=== PATIENT | female | born 1960 | race Caucasian/White ===

== ENCOUNTER 2018-08-08 11:49 | Outpatient (REF) | payer BC, SELFPAY ==
[2018-08-08 22:23] LABS: ALT 30 U/L (12-78); AST 18 U/L (15-37); Albumin 4.1 g/dL (3.4-5.0); Alkaline Phosphatase 77 U/L (46-116); Anion Gap 10.2 mmol/L (3-11); BUN 22 mg/dL (7-18); Bilirubin, Total 0.6 mg/dL (0.2-1.0); CO2 27.8 mmol/L (21.0-32.0); CREATININE 0.94 mg/dL (0.55-1.02); Calcium 9.7 mg/dL (8.5-10.1); Chloride 101 mmol/L (98-107); Cholesterol 302 mg/dL (50-200); Glucose 86 mg/dL (70-100); HDL Cholesterol 116 mg/dL (40-60); LDL CHOLESTEROL 167 mg/dL (<100); Potassium 4.2 mmol/L (3.5-5.1); Sodium 139 mmol/L (136-145); Total Protein 7.9 g/dL (6.4-8.2); Triglyceride 66 mg/dL (30-150)
== END 2018-08-08 12:09 ==
LOC: NCHCN 11:49
PROVIDERS: PCP Family Medicine; Visit Provider Family Medicine
DX: E78.5 Hyperlipidemia, unspecified (principal)
CPT/HCPCS: 80053; 80061; 83721

== ENCOUNTER 2018-09-07 10:14 | Outpatient (REF) | payer BC, SELFPAY ==
--- NOTE | 2018-09-07 09:40 | PAPFT_PTH ---
PATIENT: Shaina Lewis LOC: [facility] U#:[id number] AGE/SX: 57/F ROOM: RE09/07/[address]: Hilda Appiah : 1960 BED: DIS: 09/07/2018 SPEC #: [id number] RECD: 09/07/18 12:57 STATUS: CHERYL REMadeline #: [id number] GARETH: 09/07/18 09:[address]: Hilda Appiah DEPT: [facility] [place] Cytology RECD BY: Jennifer Gross ENTERED: 09/07/18 12:58 SP TYPE: PAPFT OTHR DR: Sophia Obando Tissues: 1 - CX/ENDOCX FOR PAP SMEARS Procedures: PAP THIN PREP/UVM Screening HPV DNA PROBE Comments: [id number]
== END 2018-09-07 10:34 ==
LOC: LBN 10:14
PROVIDERS: PCP Family Medicine; Visit Provider Obstetrics & Gynecology Gynecology
DX: Z12.4 Encounter for screening for malignant neoplasm of cervix (principal); Z11.51 Encounter for screening for human papillomavirus (HPV)
CPT/HCPCS: 88142; 87624

== ENCOUNTER 2018-10-02 01:10 | Outpatient (CLI) | payer BC, SELFPAY ==
--- NOTE | 2018-10-02 08:05 | DI.MAMMO_ITS ---
SYMPTOM/DIAGNOSIS: SCREENING, Z12.31 MAMMOGRAMS: Mammograms were interpreted according to the usual protocol including computer analysis with CAD system, tomosynthesis and C view imaging. Comparison is made with exams from [id number]. The breasts are composed of scattered fibroglandular densities. No suspicious masses or suspicious microcalcifications are seen. There has been no significant change. Breast density, category B. IMPRESSION: Category 1, negative mammogram. Yearly screening mammography is recommended. [facility] ASSESSMENT OF FINDINGS: Negative. Category 1. Patient will receive a letter notifying them of these results. BI-RADS category B. There are scattered areas of fibroglandular density.
== END 2018-10-02 01:30 ==
PROVIDERS: PCP Family Medicine; Visit Provider Obstetrics & Gynecology Gynecology
CPT/HCPCS: 77063; 77067

== ENCOUNTER 2019-06-04 13:31 | Outpatient (REF) | payer BC, SELFPAY | END 2019-06-04 13:51 | LOC: NCHCN 13:31 | PROVIDERS: PCP Family Medicine; Visit Provider Specialist/Technologist Athletic Trainer | DX: R32 Unspecified urinary incontinence (principal) | CPT/HCPCS: 87077; 87086; 87186 ==

== ENCOUNTER 2019-09-13 10:08 | Outpatient (REF) | payer BC, SELFPAY ==
--- NOTE | 2019-09-13 10:00 | PAPFT_PTH ---
PATIENT: Shaina Lewis LOC: [facility] U#:[id number] AGE/SX: 58/F ROOM: RE09/13/[address]: VANI Alvarado : 1960 BED: DIS: 09/13/2019 SPEC #: [id number] RECD: 09/13/19 12:58 STATUS: CHERYL REQ #: [id number] GARETH: 09/13/19 10:[address]: Samara Rubio DEPT: [facility] Cytology RECD BY: Jennifer Gross ENTERED: 09/13/19 12:59 SP TYPE: PAPFT OTHR DR: Sophia Obando Tissues: 1 - CX/ENDOCX FOR PAP SMEARS Procedures: PAP THIN PREP/UVM Screening Comments: [id number]
== END 2019-09-13 10:28 ==
LOC: LBN 10:08
PROVIDERS: PCP Family Medicine; Visit Provider Nurse Practitioner Family
DX: Z12.4 Encounter for screening for malignant neoplasm of cervix (principal); Z11.51 Encounter for screening for human papillomavirus (HPV)
CPT/HCPCS: 88142

== ENCOUNTER 2019-10-01 16:29 | Outpatient (REF) | payer BC, SELFPAY ==
--- NOTE | 2019-10-01 15:45 | CER_PTH ---
PATIENT: Shaina Lewis LOC: [facility] U#:[id number] AGE/SX: 58/F ROOM: RE10/01/[address]: Hilda Appiah : 1960 BED: DIS: 10/01/2019 SPEC #: [id number] RECD: 10/01/19 16:40 STATUS: CHERYL ROCHA #: [id number] GARETH: 10/01/19 15:[address]: Hilda Appiah DEPT: Surgical Specimen RECD BY: Jennifer Gross ENTERED: 10/01/19 16:41 SP TYPE: CER OTHR DR: Sophia Obando Tissues: 1 - ENDOCERVICAL BX/CURRETTE 2 - CERVICAL BIOPSY Procedures: GROSS AND MICRO LEVEL 4 IMMUNOPEROXIDASE STAIN P16 IPEX Comments: [id number]
== END 2019-10-01 16:49 ==
LOC: LBN 16:29
PROVIDERS: PCP Family Medicine; Visit Provider Obstetrics & Gynecology Gynecology
DX: N84.1 Polyp of cervix uteri (principal); N87.9 Dysplasia of cervix uteri, unspecified; R87.611 Atypical squamous cells cannot exclude high grade squamous intraepithelial lesion on cytologic smear of cervix (ASC-H); R87.810 Cervical high risk human papillomavirus (HPV) DNA test positive
CPT/HCPCS: 88305; 88342; 88361

== ENCOUNTER 2020-01-18 10:39 | Emergency (ER) | payer BC, SELFPAY ==
[2020-01-18 10:49] VITALS: BP 110/66; PULSE 67; TEMP 36.3; O2SAT 99
--- NOTE | 2020-01-18 11:09 | W.ED.GENAD ---
Discharge Plan Disposition Patient Disposition: HOME Condition: Stable Discharge Details Chief Complaint: Orthopedic Clinical Impression: Hyperextension injury of right knee, Hematoma of right lower leg Primary Care Provider: Rachel Lara ED Provider: Froilan Carreno Home Meds and New Rx's Prescriptions: Continued desloratadine [Clarinex] 5 mg tablet 5 mg PO DAILY RF: 0 montelukast [Singulair] 10 mg tablet 10 mg PO QPM RF: 0 simvastatin 10 mg tablet 10 mg PO QHS RF: 0 cholecalciferol (vitamin D3) 2,000 unit capsule 2,000 unit PO DAILY RF: 0 vitamin B complex capsule 1 cap PO DAILY RF: 0 sertraline 100 MG tablet 100 mg PO DAILY RF: 0 estradiol 0.01 % (0.1 mg/gram) cream 1 gm VG DAILY Qty: 42.5 RF: 5 fluticasone propionate 50 mcg/actuation spray,suspension 2 spray Inhalation DAILY PRNRF: 0 ibuprofen 200 mg Tablet 200 mg PO Q6H PRNRF: 0 Discharge Instructions Instructions: Swollen Knee Joint (ED) Additional Instructions: Please use hinged knee brace and crutches. You may apply light weight on your right leg. Keep leg elevated when not ambulating. Please take ibuprofen over the counter. Take 600mg by mouth every 6 hours as needed for pain. Please take acetaminophen (tylenol) - 650mg every 6 hours by mouth as needed for pain. Please follow-up with orthopedics. Call for an appointment. Return to the ER for any new concerning or worsening symptoms. Referrals: Rachel Lara [Primary Care Provider] - Lenin Segal MD [ [facility] STAFF PHYSICIAN] - Discharge Data Discharge Date/Time-TO BE ENTERED AT DEPARTURE: 01/18/20 12:57 Medical Decision Making 59-year-old female here 2 weeks status post hyperextension injury to her right knee with swelling and pain posterior knee extending into her calf and ankle. Small knee effusion and pain on anterior drawer testing. No warmth or erythema of the knee or posterior calf. Compartments are soft. Suspect ligamentous injury. X-ray of the right knee was interpreted by radiology: IMPRESSION: There is no evidence of acute fracture.There is no evidence of malalignment or dislocation. Consider DVT. Ultrasound of the right lower extremity was interpreted by associate professor of radiology: No DVT, does have fluid collection in posterior today extending into calf that is thought to be a ruptured Marcum's cyst. I have ordered about the potential for hematoma related to hyperextension injury. She does have strong pulses distally. Plan will be to have the patient follow-up with orthopedics. I will place her in a hinged knee brace and advise she use crutches. She does have crutches at home. Official ultrasound interpretation of the lower leg pending at time of discharge. Usual and customary discharge instructions were provided. HPI General Mode of arrival: ambulatory. Date/Time Provider Initiated Documentation: 01/18/20 11:08. Limitations to Documentation: no limitations. Information obtained by: patient. HPI Narrative: 59-year-old female here with chief complaint of right knee pain and leg swelling. Patient is a very pleasant young lady who was a avid runner in the past. She notes that she read a [place] in 2000 and subsequently had some knee inflammation. She did see an orthopedic surgeon at that time who felt that there was some ligamentous injury recommended that she refrain from running. Patient states she continues to run intermittently although much less frequently. About 2 weeks ago she decided go for atrial run with her dogs and 1 of her dogs impacted her right knee resulting in a hyperextension injury. Over the past 2 weeks she has had pain in the knee with swelling. Swelling is seem to progress distally into her calf and lower leg. She does have some calf tightness. Patient states she continues to have pain with certain movements of the knee. No history of blood clots. Related Data Home Medications Medication Instructions Recorded Confirmed sertraline 100 mg PO DAILY tab-cap NS 11/09/12 01/18/20 cholecalciferol (vitamin D3) 50 2,000 unit PO DAILY 09/07/18 01/18/20 mcg (2,000 unit) capsule montelukast 10 mg tablet 10 mg PO QPM 09/07/18 01/18/20 simvastatin 10 mg tablet 10 mg PO QHS 09/07/18 01/18/20 vitamin B complex 1 cap PO DAILY 09/07/18 01/18/20 desloratadine 5 mg tablet 5 mg PO DAILY 09/13/19 01/18/20 fluticasone propionate 50 2 spray INHALATION DAILY PRN 09/13/19 01/18/20 mcg/actuation nasal spray,suspension estradiol 1 gm VG DAILY #42.5 gm 10/14/19 01/18/20 ibuprofen 200 mg PO Q6H PRN 01/18/20 01/18/20 Previous Rx's Medication Instructions Recorded estradiol 1 gm VG DAILY #42.5 gm 10/14/19 Allergies Allergy/AdvReac Type Severity Reaction Status Date / Time penicillin G Allergy Severe unknown Verified 01/18/20 10:54 was hospitalized-age 4 seasonal Allergy Uncoded 01/18/20 10:54 General Stated Complaint: Orthopedic PABLO: 4 Review of Systems Musculoskeletal Musculoskeletal: Reports as per HPI and Denies numbness Integumentary/Breasts Skin/Breast: Denies rash Neurologic Neurologic: Denies numbness [facility] Medical History ASCUS with positive high risk HPV (Acute) 09/2019. Atypical metaplastic cells on biopsy suggestive of inflammatory process. Plan to treat with vaginal estradiol for 6 months and then re-colpo. Depression (Chronic) Elevated lipids (Chronic) Vaginal atrophy (Acute) Rx with Premarin cream. Surgical History History of breast biopsy (Inactive 05/29/14) Hx of colposcopy with cervical biopsy (Acute) 2016. Nl 2019. Status post breast reduction (Inactive 05/29/14) Family History Mother Alzheimer's dementia Father No problems noted. 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 Resides in [place]. 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 Female Reproductive History Menstrual Menopause type: natural History History 2 Para Hx # Term Pregnancies 2 Multiple births Hx # Pregnancies Ectopic pregnancies AB induced Hx Number of Living Children AB spontaneous Exam Const General: cooperative and healthy appearing Orientation: alert and awake Resp Effort & Inspection: normal respiratory effort Cardio Rate: regular rate Rhythm: regular rhythm Pulses: dorsalis pedis present bilaterally 2+ Neuro General: patient alert and patient awake Sensory Exam: no sensory deficits noted (Distal right lower extremity) Extrem Right lower extremity: knee Details: swelling (Mild knee effusion) and knee ligament exam abnormal (Anterior drawer negative but pain on test) and lower leg Details: other (Mild edema of the calf and ankle); no erythema and no tenderness Course Vital Signs Vital signs: Vital Signs Temperature 36.3 C L 01/18/20 10:49 Pulse 67 01/18/20 10:49 Blood Pressure 110/66 01/18/20 10:49 Pulse Oximetry 99 01/18/20 10:49 Temperature 36.3 C L 01/18/20 10:49 Temperature Source Temporal Artery Scan 01/18/20 10:49 Pulse 67 01/18/20 10:49 Respiratory Effort Non-Labored 01/18/20 10:52 Blood Pressure 110/66 01/18/20 10:49 Blood Pressure Position Sitting 01/18/20 10:49 Pulse Oximetry 99 01/18/20 10:49 Oxygen Delivery Method Room Air 01/18/20 10:49 Oxygen Flow Rate 0 01/18/20 10:49 Pain Level 5 01/18/20 10:58
--- NOTE | 2020-01-18 11:15 | DI.RAD_ITS ---
EXAM: XR KNEE RT 3V AP,LAT,MICHAEL CLINICAL HISTORY: pain, swelling,injury. TECHNIQUE: 2D digital imaging was performed. COMPARISON: CR CHEST 2 VIEWS PA,LAT from 08/04/2014 FINDINGS: BONES: No acute fracture is present. No bony destructive lesion is seen. JOINTS: The knee is normally aligned. No joint effusion is seen. SOFT TISSUE: Normal. IMPRESSION: Unremarkable radiographs of the right knee. DATA REPOSITORY: RADIATION DOSE DELIVERED:
--- NOTE | 2020-01-18 11:45 | DI.US_ITS ---
EXAM: US LOWER EXTREMITY VENOUS RT CLINICAL HISTORY: swelling pain TECHNIQUE: Right lower extremity venous ultrasound performed using grayscale, color-flow, and spectr al Doppler analysis. COMPARISON: No exams were available for comparison FINDINGS: The right common femoral, femoral and popliteal veins demonstrate normal compressibility, augmentatio n, and color Doppler. The posterior tibial veins are patent. The saphenofemoral junction is unremark able. There is a 6.9 x 1.1 x 3.8 cm complex avascular fluid collection in the right popliteal fossa extending into the right calf. The soft tissues are unremarkable. IMPRESSION: 1. No DVT. 2. 6.9 cm complex avascular fluid collection the right popliteal fossa. Differential includes absces s, hematoma or seroma. DATA REPOSITORY:
--- NOTE | 2020-01-18 12:07 | DI.VRAD_ITS ---
PROCEDURE INFORMATION: Exam: XR Right Knee Exam date and time: 01/18/2020 11:29 AM Age: 59 years old Clinical indication: Knee; Right; Patient HX: Injury 19 years ago, pain again 2 weeks ago after hyperextension, swelling TECHNIQUE: Imaging protocol: XR Right knee. Views: 3 views. COMPARISON: No relevant prior studies available. FINDINGS: Bones/joints: There is no evidence of acute fracture.There is no evidence of malalignment or dislocation. Soft tissues: Normal. IMPRESSION: There is no evidence of acute fracture.There is no evidence of malalignment or dislocation. Dictated and Authenticated by: Landon Aj MD. Ordering:CRISTHIAN Mcogvern MD
--- NOTE | 2020-01-18 13:23 | DI.VRAD_ITS ---
PROCEDURE INFORMATION: Exam: US Duplex Right Lower Extremity Veins, Limited Exam date and time: 01/18/2020 11:55 AM Age: 59 years old Clinical indication: Pain; Leg, lower; Right; Patient HX: Twisting injury 2 weeks ago TECHNIQUE: Imaging protocol: Real-time Duplex ultrasound of the Right Lower Extremity with 2-D johnston scale, color Doppler flow and spectral waveform analysis with image documentation. Limited exam was focused on the right lower extremity veins. COMPARISON: No relevant prior studies available. FINDINGS: Right deep veins: Unremarkable. The common femoral, femoral, proximal profunda femoral and popliteal veins are patent without thrombus. Normal Doppler waveforms. Normal compressibility and/or augmentation response. Right superficial veins: Unremarkable. Saphenofemoral junction is patent without thrombus. Soft tissues: 6.9 x 1.1 x 3.8 cm complex avascular fluid collection in the right popliteal fossa extending into the right calf . IMPRESSION: No evidence of deep vein thrombosis. 6.9 x 1.1 x 3.8 cm complex avascular fluid collection in the right popliteal fossa extending into the right calf Differential includes abscess, hematoma, seroma. Dictated and Authenticated by: Landon Aj MD. Ordering:CRISTHIAN Mcgovern MD
== END 2020-01-18 12:57 | disposition home or self-care (01) ==
PROVIDERS: Emergency Provider Student in an Organized Health Care Education/Training Program; PCP Nurse Practitioner Family
DX: M25.461 Effusion, right knee (principal); S80.01XA Contusion of right knee, initial encounter; X50.9XXA Other and unspecified overexertion or strenuous movements or postures, initial encounter
CPT/HCPCS: 29505; 73562; 99284; 93971; L1820

== ENCOUNTER 2020-01-23 13:50 | Outpatient (CLI) | payer BC, SELFPAY ==
--- NOTE | 2020-01-23 13:15 | DI.RAD_ITS ---
EXAM: XR KNEE RT 1V CLINICAL HISTORY: eval R anterior knee pain TECHNIQUE: COMPARISON: CR,XR XR KNEE RT 3V AP,LAT,MICHAEL from 01/18/2020 FINDINGS: Single Merchant view was obtained and shows grossly normal alignment of the patellofemoral joint. Mi nimal marginal osteophyte formation of the patella is noted. IMPRESSION:
== END 2020-01-23 14:10 ==
PROVIDERS: PCP Nurse Practitioner Family; Referring Provider Nurse Practitioner Family; Visit Provider Student in an Organized Health Care Education/Training Program
DX: M25.561 Pain in right knee (principal); M25.761 Osteophyte, right knee
CPT/HCPCS: 73560

== ENCOUNTER 2020-03-04 02:57 | Outpatient (CLI) | payer BC, SELFPAY ==
--- NOTE | 2020-03-04 06:30 | DI.MRI_ITS ---
EXAM: MR LOWER JOINT RT WO CLINICAL HISTORY: RT KNEE PAIN, INTERNAL DERANGEMENT, M23.91. TECHNIQUE: Multiplanar multisequence MRI was performed. COMPARISON: CR,XR XR KNEE RT 3V AP,LAT,MICHAEL from 01/18/2020 CR XR KNEE RT 1V from 01/23/2020 FINDINGS: MR examination of the knee was performed according to the usual protocol. There is a moderate knee joint effusion. There is a Marcum's cyst measuring 42 x 16 millimeters in di ameter on sagittal. Extensor mechanism and patellofemoral joint: There is mildly abnormal signal of patellar articular ca rtilage and there is mild cartilage surface irregularity of the medial facet. There is moderate thin brett of the trochlear articular cartilage. Medial and lateral retinacula appear intact. Quadriceps tendon and patellar tendon are unremarkable. There is increased signal in posterior portions of the infrapatellar fat pad, there are areas of abno rmal signal in anterior proximal tibia centrally, question impaction injury at this site with associa cherise fat pad edema. Supra patellar fat pads are unremarkable. Medial joint compartment: There is moderate fairly smooth thinning of the articular cartilage at the medial tibiofemoral joint. Medial meniscus is thinned and frayed particularly posteriorly suggesting chronic tear. No displaced tear seen. Medial collateral ligament complex appears intact. Lateral joint compartment: There is mild smooth thinning of articular cartilage at the lateral tibiof emoral joint. Lateral meniscus shows abnormal signal centrally without a discrete surfacing tear. N o significant collateral ligament or posterolateral corner injury seen. Cruciate ligaments: Mildly abnormal signal noted in ACL particularly adjacent to femoral attachment, nonspecific. No discrete tear of anterior or posterior cruciate ligaments. Bones: Mildly abnormal signal of central anterior tibia as described above with associated edema of i nfrapatellar fat pad, question impaction injury, please correlate clinically. No other significant b melecio signal abnormality seen. IMPRESSION: Nondisplaced deficient frayed medial meniscus consistent with chronic tear. Degenerative articular cartilage changes at all 3 joints of the knee. Question focal impaction injury of proximal anterior tibia. DATA REPOSITORY:
== END 2020-03-04 03:17 ==
PROVIDERS: PCP Nurse Practitioner Family; Visit Provider Student in an Organized Health Care Education/Training Program
DX: M23.203 Derangement of unspecified medial meniscus due to old tear or injury, right knee (principal); M17.11 Unilateral primary osteoarthritis, right knee; M25.461 Effusion, right knee
CPT/HCPCS: 73721

== ENCOUNTER 2020-04-08 16:04 | Outpatient (REF) | payer BC, SELFPAY ==
--- NOTE | 2020-04-08 15:30 | ENDO_PTH ---
PATIENT: Shaina Lewis LOC: [facility] U#:[id number] AGE/SX: 59/F ROOM: RE04/08/[address]: Hilda Appiah : 1960 BED: DIS: 04/08/2020 SPEC #: [id number] RECD: 04/08/20 16:56 STATUS: CHERYL REMadeline #: [id number] GARETH: 04/08/20 15:[address]: Hilda Appiah DEPT: Surgical Specimen RECD BY: Evita Evans ENTERED: 04/08/20 16:57 SP TYPE: Endo OTHR DR: Rachel Lara Tissues: 1 - ENDOCERVICAL BX/CURRETTE Procedures: GROSS AND MICRO LEVEL 4 Comments: [id number]
== END 2020-04-08 16:24 ==
LOC: LBN 16:04
PROVIDERS: PCP Nurse Practitioner Family; Visit Provider Obstetrics & Gynecology Gynecology
DX: Z12.4 Encounter for screening for malignant neoplasm of cervix (principal); Z87.42 Personal history of other diseases of the female genital tract
CPT/HCPCS: 88305

== ENCOUNTER 2020-04-10 03:50 | Outpatient (CLI) | payer BC, SELFPAY ==
[2020-04-11 20:22] LABS: COVID-19 RT-PCR Result NEGATIVE (Negative)
== END 2020-04-10 04:10 ==
PROVIDERS: PCP Nurse Practitioner Family; Visit Provider Student in an Organized Health Care Education/Training Program
DX: Z11.59 Encounter for screening for other viral diseases (principal); Z01.818 Encounter for other preprocedural examination
CPT/HCPCS: U0003

== ENCOUNTER 2020-04-14 10:55 | Day surgery (SDC) | payer BC, SELFPAY ==
[2020-04-14] VITALS (7 sets, daily range): BP systolic 100–121; BP diastolic 44–84; PULSE 54–69; RESP 14–20; TEMP 36–36.7; O2SAT 97–100
--- NOTE | 2020-04-14 11:37 | W.PM.DSUDISC ---
Discharge Plan Disposition Patient Disposition: HOME Condition: Good Discharge Details Reason For Visit: Right knee medial meniscus tear Attending Provider: Lenin Segal Primary Care Provider: Rachel Lara Home Meds and New Rx's Prescriptions: New hydrocodone-acetaminophen 5-325 mg tablet 1 tab PO Q6H PRN (Reason: severe post-operative pain) Qty: 4 RF: 0 acetaminophen 500 mg tablet 500 mg PO Q6H PRN (Reason: pain) Qty: 60 RF: 2 ibuprofen 600 mg tablet 600 mg PO TID PRN (Reason: pain) Qty: 60 RF: 2 Continued desloratadine [Clarinex] 5 mg tablet 5 mg PO DAILY RF: 0 montelukast [Singulair] 10 mg tablet 10 mg PO QPM RF: 0 simvastatin 10 mg tablet 10 mg PO QHS RF: 0 cholecalciferol (vitamin D3) 2,000 unit capsule 2,000 unit PO DAILY RF: 0 vitamin B complex capsule 1 cap PO DAILY RF: 0 sertraline 100 MG tablet 100 mg PO DAILY RF: 0 estradiol 0.01 % (0.1 mg/gram) cream 1 gm VG DAILY Qty: 42.5 RF: 5 fluticasone propionate 50 mcg/actuation spray,suspension 2 spray Inhalation DAILY PRNRF: 0 Discontinued ibuprofen 200 mg Tablet 200 mg PO Q6H PRNRF: 0 Discharge Instructions Stand Alone Forms: Philipp Knee Arthroscopy Activity:: Elevate Remove Dressings/Wound Care:: 72 hours Shower/Bathe:: 72 hours Diet:: As Tolerated Discharge Orders Discharge Orders: Discharge Order (Routine); Ordered 04/14/20 Ordered By: Adrianna Bernabe DS: Diagnosis Discharge Diagnosis (1) Tear of medial meniscus of right knee: Status: Acute
[2020-04-14] MEDS: Acetaminophen 500 MG TAB 1000 MG PO (11:40)
[2020-04-14] MEDS: Celecoxib 200 MG CAP 400 MG PO (11:41)
[2020-04-14] MEDS: Lactated Ringers 1,000 ML 80 ML IV (11:41)
[2020-04-14] MEDS: ceFAZolin 2 GM/50 ML BAG IVPB (12:04)
[2020-04-14] MEDS: Bupivacaine 0.5% Pres-Free 30 ML VIAL (12:24)
[2020-04-14] MEDS: HYDROcodone 5/Acetaminophen 325 TAB PO (14:13)
--- NOTE | 2020-04-15 07:23 | ROE_ITS ---
Date of service: 04/14/20 Time of Service: 13:23 Operative Note Operative Note DATE OF PROCEDURE: 04/14/20 PRE-OP DIAGNOSIS: Right Knee Medial Meniscus Tear POST-OP DIAGNOSIS: same PROCEDURE: Right Knee Arthroscopic Partial Medial Menisectomy SURGEON: Lenin Segal ANESTHESIA: GETA ESTIMATED BLOOD LOSS: 0 PATHOLOGY: none sent TOURNIQUET TIME: 0 COMPLICATIONS: None Patient was transported to: PACU Patient's condition: stable Indications: I have seen Shaina in clinic for symptoms of a meniscus tear. This was confirmed based on MRI and exam findings. Nonoperative measures were exhausted but disability and pain persisted. I discussed knee arthroscopy with meniscal intervention with the patient. I reviewed the risks of the procedure to include, but not limited to, bleeding, infection, pain, stiffness, damage to nerves or vessels, recurrence, blood clot. Despite these risks, the patient elected to proceed. Findings: A diagnostic arthroscopy was performed with the following findings: Suprapatellar Pouch: No significant inflammation, No loose bodies Medial Compartment: Complex medial meniscal tear with peripheral detachment, Partial tear extending into the root, Grade II chondromalacia, No loose bodies Notch: ACL and PCL were intact, with possible thinning of ACLbut no discrete tear Lateral Compartment: No meniscal tear, Intact meniscal root, No significant chondromalacia or signs of arthritis, No loose bodies Patellofemoral Compartment: No significant chondromalacia, No apparent patellar maltracking Procedure Description: Shaina was greeted in the preoperative holding area where the correct side was identified and marked. The consent was reviewed with the patient and signed. The history and physical was updated. All questions were answered. Shaina was taken back to the operating room. The patient was placed into the s upine position on the operating room table. A nonsterile tourniquet was placed high onto the leg but not used. All bony prominences were well padded. Prophylactic antibiotics in the form of Cefazolin were administered. The right leg was then prepped with Chloraprep and draped in a standard fashion with stockinette and extremity drape. A timeout to confirm correct identity, side and site, procedure, allergies, anesthesia, and medical concerns was performed. The leg was placed into a pneumatic leg clay, [id number]. A standard lateral portal was made at the lateral border of the patella tendon in line with the inferior pole of the patella, soft spot. The skin and deep tissue was incised sharply and the blunt trochar was inserted atraumatically. A diagnostic arthroscopy was performed and the findings are listed above. The suprapatellar pouch had no significant inflammatory change. The patellofemoral articulation showed no articular damage as well as good tracking. The lateral gutter had no loose bodies and the medial gutter had no loose bodies. The knee was brought into some valgus stress in extension to open the medial compartment. A medial portal was made, localized by a spinal needle. The portal was created with an #11 blade through skin and capsule under direct visualization avoiding any meniscal injury. A probe was then inserted into the medial compartment. The medial compartment was fully inspected. The chondral surface of the tibia showed Grade II chondromalacia and the surface of the femur showed similar findings with some areas of thining but no exposed bone. The medial meniscus had a complex meniscal tear. There is a horizontal tear extending into the root with this fragment based on the root and flipped into the posterior central portion of the knee. This piece was removed biters and jono. There is also abnormal appearance within the posterior horn and extending posterior body towards the root. This was probed was found that the entire posterior aspect of meniscus was detached from the peripheral capsular fibers. At the level of the posterior horn there was a complex tear with a large vertical component at the capsular attachment as well as intrasubstance vertical tearing in a horizontal tear which extended into the previously identified tear towards the root. Additionally, there is a small radial component here in this area the horn from the remainder of the medial meniscus. There is fraying at this level of the horn, making this likely be more chronic tear. Using a shaver I cleaned up the loose surfaces to better evaluate the meniscus. The meniscal quality was quite poor at the level of the posterior horn with multiple tear patterns and no solid substance of meniscus. With only a shaver the meniscus was completely removed and there is 1 area. Was then identified at the remainder of the posterior aspect meniscus was attached and capsule. Given this and the extension into the root and the arthritic changes already present within the knee I proceeded with removing the remainder of his posterior meniscus. Given the quality of the meniscus I do not find that a meniscal repair to reattach the capsular tissue with uterine all inside or an inside-out technique will provide benefit. Did appear more chronic in nature and given her age and arthritic changes already, would be less likely to provide lasting relief. I completed the partial meniscectomy with the biters and jono and smooth the surfaces. The notch was then inspected which showed an intact ACL and an intact PCL. The ACL appeared to be thinner than I would expect but otherwise was attached without a discrete tear. The leg was then brought into a figure of 4 position. The lateral compartment was fully inspected with the arthroscope and a probe. The chondral surface of the lateral femur showed no significant chondromalacia. The chondral surface of the lateral tibia showed no significant chondromalacia. The lateral meniscus had no meniscal tear. The arthroscope was brought back into the suprapatellar pouch and the leg was in full extension. The knee was thoroughly irrigated with the arthroscopic fluid on high flow and pressure. Inflow was stopped and excess fluid was removed. The wounds were closed with 4-0 Nylon. They were dressed with Xeroform, 4x4 gauze, ABD pad, Kerlix and an ABNER wrap. A cryo-cuff was applied. The patient tolerated the procedure well and was returned to the Same Day Surgery area in a stable condition suffering no known complication.
== END 2020-04-14 15:00 | disposition home or self-care (01) ==
PROVIDERS: PCP Nurse Practitioner Family; Visit Provider Student in an Organized Health Care Education/Training Program
PROC: (CPT 29870; principal; 2020-04-14 12:00)
DX: S83.241A Other tear of medial meniscus, current injury, right knee, initial encounter (principal); M94.261 Chondromalacia, right knee
CPT/HCPCS: 29881; J0690; J1100; J1885; J2001; J2405

== ENCOUNTER 2020-05-13 14:34 | Outpatient (REF) | payer BC, SELFPAY ==
--- NOTE | 2020-05-13 14:00 | CER_PTH ---
PATIENT: Shaina Lewis LOC: [facility] U#:[id number] AGE/SX: 59/F ROOM: RE05/13/[address]: Hilda Appiah : 1960 BED: DIS: 05/13/2020 SPEC #: [id number] RECD: 05/13/20 17:03 STATUS: CHERYL REQ #: [id number] GARETH: 05/13/20 14:[address]: Hilda Appiah DEPT: Surgical Specimen RECD BY: Jennifer Gross ENTERED: 05/13/20 17:03 SP TYPE: CER OTHR DR: Rachel Lara Tissues: 1 - CERVICAL LEEP/LOOP Procedures: GROSS AND MICRO LEVEL 5 Comments: [id number]
== END 2020-05-13 14:54 ==
LOC: LBN 14:34
PROVIDERS: PCP Nurse Practitioner Family; Visit Provider Obstetrics & Gynecology Gynecology
DX: Z87.410 Personal history of cervical dysplasia (principal)
CPT/HCPCS: 88307

== ENCOUNTER 2020-06-12 00:48 | Outpatient (CLI) | payer BC, SELFPAY ==
[2020-06-15 13:02] LABS: SARS-CoV-2 RNA Not Detected (NotDetected); SARS-CoV-2 RNA Source Nasal/Nares
== END 2020-06-12 01:08 ==
PROVIDERS: Obstetrics & Gynecology; PCP Nurse Practitioner Family; Visit Provider Obstetrics & Gynecology Gynecology
DX: Z11.59 Encounter for screening for other viral diseases (principal); Z01.818 Encounter for other preprocedural examination
CPT/HCPCS: U0003

== ENCOUNTER 2020-06-12 00:50 | Outpatient (CLI) | payer BC, SELFPAY ==
[2020-06-12 15:43] LABS: Abs Immature Grans 0.01 10^3/uL (0.0-0.06); Absolute Basophil Count 0.01 10^3/uL (0.0-0.2); Absolute Eosinophil Count 0.23 10^3/uL (0.0-0.7); Absolute Lymphocyte Count 2.33 10^3/uL (1.2-3.4); Absolute Monocyte Count 0.54 10^3/uL (0.1-0.8); Basophils % 0.1; Eosinophils % 3.3; HCT 38.6 % (36.0-46.0); HGB 12.5 g/dL (11.2-15.7); Immature Grans % 0.1; Lymphocytes % 33.2; MCH 30.7 pg (27.0-33.0); MCHC 32.4 % (32.0-36.0); MCV 94.8 fL (80-95); MPV 10.2 fL (8.0-11.0); Monocytes % 7.7; Neutrophils % 55.6; Nucleated RBC 0 %; Platelet Count 389 10^3/uL (130-400); RBC 4.07 10^6/uL (3.93-5.22); RDW 13.2 % (11.7-14.6); RDW-SD 45.7 fL; WBC 7.02 10^3/uL (4.4-10.8)
== END 2020-06-12 01:10 ==
PROVIDERS: PCP Nurse Practitioner Family; Visit Provider Obstetrics & Gynecology
DX: R87.810 Cervical high risk human papillomavirus (HPV) DNA test positive (principal); Z01.818 Encounter for other preprocedural examination; Z01.812 Encounter for preprocedural laboratory examination
CPT/HCPCS: 36415; 86850; 86900; 86901; 85025

== ENCOUNTER 2020-06-17 09:53 | Day surgery (SDC) | payer BC, SELFPAY ==
[2020-06-17] VITALS (8 sets, daily range): BP systolic 77–126; BP diastolic 19–73; PULSE 61–68; RESP 12–17; TEMP 36.5; O2SAT 95–99
--- NOTE | 2020-06-17 09:55 | W.PM.HP.N ---
Date of service: 06/17/20 Time of Service: 09:56 Assessment and Plan Assessment and plan (1) Cervical high risk human papillomavirus (HPV) DNA test positive: Status: Acute (2) Preop examination: Status: Acute Assessment and plan: Side of the patient's last office visit we reviewed the indications for the cervical cauterization. I reviewed the risk of infection bleeding damage to surrounding structures including the bladder and bowel. Questions answered informed consent will be obtained prior to today's surgery. History of Present Illness History of Present Illness Chief Complaint: preop H&P Narrative: 59yo female who presents for a preop history and physical prior to a scheduled cold knife pulverization on 05/2018. Patient has a history of positive high risk HPV with most recent findings of LOULOU-2-3 at the time and ECC on 04/19/2020 LEEP procedure was performed on 05/13/2020 with no evidence of cervical dysplasia. Recommended an excisional procedure for diagnosis and treatment. GynHx Distant hx of + HPV in CT. 2014. Nl Pap/+HPV. 2016. Nl Pap/+ HPV. Colpo bx: Neg 2016. Nl Pap. + HPV. No colpo done. 2018. Nl Pap. + HPV. No colpo done. 08/2019. Pap: ASCUS-H. 09/2019. Colpo Bx: ECC with metaplasic cells with atypia. Favoring reactive. Polypoid tissue c/w inflammatory response. Rx 6 months of vaginal E2 and repeat colpo. 04/01/20. ECC LOULOU-2-LOULOU-3. 05/13/20. LEEP. No evidence of previously noted LOULOU 2-3 findings. Review of Systems Constitutional Constitutional: Reports system reviewed and no additional complaints, except as documented [facility] Medical History 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 Atypical metaplastic cells on biopsy suggestive of inflammatory process. Plan to treat with vaginal estradiol for 6 months and then re-colpo. Degenerative joint disease of right knee Depression pt. states they were panic attacks Elevated lipids Tear of medial meniscus of right knee s/p right knee arthroscopy on 04/14/20 Vaginal atrophy Rx with Premarin cream. Surgical History H/O LEEP History of breast biopsy (05/29/14) Hx of colposcopy with cervical biopsy 2017. Nl 2019. Status post arthroscopy of right knee (04/14/20) Status post breast reduction (05/29/14) Family History Mother Alzheimer's dementia Father No problems noted. 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[employer] Sexually active: No Current gender identity: female Do you feel safe at home: Yes Do you feel safe in your relationship?: Yes Female Reproductive History Menstrual Menopause type: natural History History 2 Para Hx # Term Pregnancies 2 Multiple births Hx # Pregnancies Ectopic pregnancies AB induced Hx Number of Living Children AB spontaneous Meds Home Medications and Allergies Home Medications Medication Instructions Recorded Confirmed Type sertraline 100 mg PO DAILY tab-cap NS 11/09/12 06/15/20 History cholecalciferol (vitamin D3) 50 2,000 unit PO DAILY 09/07/18 06/15/20 History mcg (2,000 unit) capsule montelukast 10 mg tablet 10 mg PO QPM 09/07/18 06/15/20 History simvastatin 10 mg tablet 10 mg PO QHS 09/07/18 06/15/20 History vitamin B complex 1 cap PO DAILY 09/07/18 06/15/20 History desloratadine 5 mg tablet 5 mg PO DAILY 09/13/19 06/15/20 History fluticasone propionate 50 2 spray INHALATION DAILY PRN 09/13/19 06/15/20 History mcg/actuation nasal spray,suspension estradiol 1 gm VG DAILY #42.5 gm 10/14/19 06/15/20 Rx acetaminophen 500 mg PO Q6H PRN #60 tab 04/14/20 06/15/20 Rx ibuprofen 600 mg PO TID PRN #60 tab 04/14/20 06/15/20 Rx Allergies Allergy/AdvReac Type Severity Reaction Status Date / Time penicillin G Allergy Severe unknown Verified 06/15/20 15:58 was hospitalized-age 4 seasonal Allergy Uncoded 06/15/20 15:58 Exam Const General: cooperative and no acute distress Nutritional Appearance: average body habitus Orientation: alert, awake and oriented x3 Neck Neck: normal visual inspection Thyroid: thyroid normal Resp Effort & Inspection: normal respiratory effort Auscultation: clear to auscultation bilaterally Cardio Rate: regular rate Rhythm: regular rhythm GI Inspection: normal to inspection Palpation: no hepatosplenomegaly, no masses and nontender General: deferred Skin General skin exam: no rashes or lesions noted Extrem General: normal to inspection Psych Appearance: grossly normal Mental Status: mental status grossly normal Speech and Movement: speech and movement normal COVID-19 Screening Have you, or household traveled for leisure in last 14 days?: No Had IN PERSON contact w/suspected or confirmed C-19 person: No
[2020-06-17] MEDS: Lactated Ringers 1,000 ML 125 ML IV (10:35)
[2020-06-17] MEDS: Bupivacaine 0.25% Pres-Free 30 ML VIAL (12:27)
--- NOTE | 2020-06-17 12:36 | CER_PTH ---
PATIENT: Shaina Lewis LOC: [facility] U#:[id number] AGE/SX: 59/F ROOM: RE06/17/[address]: Hilda Appiah : 1960 BED: DIS: 06/17/2020 SPEC #: [id number] RECD: 06/17/20 13:11 STATUS: CHERYL REQ #: [id number] GARETH: 06/17/20 12:[address]: Hilda Appiah DEPT: Surgical Specimen RECD BY: Jennifer Gross ENTERED: 06/17/20 13:12 SP TYPE: CER OTHR DR: Rachel Lara Tissues: 1 - CERVICAL CONE BX Procedures: GROSS AND MICRO LEVEL 5 Comments: [id number]
--- NOTE | 2020-06-17 13:05 | W.PM.DSUDISC ---
Discharge Plan Disposition Patient Disposition: HOME Condition: Fair Discharge Details Reason For Visit: Current excision of the cervix Attending Provider: Hilda Appiah Primary Care Provider: Rachel Lara Home Meds and New Rx's Prescriptions: Continued desloratadine [Clarinex] 5 mg tablet 5 mg PO DAILY RF: 0 montelukast [Singulair] 10 mg tablet 10 mg PO QPM RF: 0 simvastatin 10 mg tablet 10 mg PO QHS RF: 0 cholecalciferol (vitamin D3) 2,000 unit capsule 2,000 unit PO DAILY RF: 0 vitamin B complex capsule 1 cap PO DAILY RF: 0 sertraline 100 MG tablet 100 mg PO HS RF: 0 fluticasone propionate 50 mcg/actuation spray,suspension 2 spray Inhalation DAILY PRNRF: 0 acetaminophen 500 mg tablet 500 mg PO Q6H PRN (Reason: pain) Qty: 60 RF: 2 ibuprofen 600 mg tablet 600 mg PO TID PRN (Reason: pain) Qty: 60 RF: 2 Discharge Instructions Additional Instructions: You can expect pelvic cramping for the next 24 hours. I recommend using ibuprofen and acetaminophen for pain. You may use the hydrocodone for pain not relieved by ibuprofen and acetaminophen. You can expect vaginal discharge for the next 4 to 5 days. The discharge may be brown or bright red. If you have bleeding like a period I want you to call the office at or call the on-call provider. Please call the [facility] to schedule a 2-week post op appointment with Dr. Appiah. Nothing in the vagina until all of your discharge has stopped. Stand Alone Forms: DSU Post Gynecology Surgery Activity:: Activity as Tolerated Diet:: As Tolerated Discharge Orders Discharge Orders: Discharge Order (Routine); Ordered 06/17/20 Ordered By: Hilda Appiah DS: Diagnosis Discharge Diagnosis (1) Cervical high risk human papillomavirus (HPV) DNA test positive: Status: Acute (2) H/O cone biopsy of cervix: Status: Acute
--- NOTE | 2020-06-18 08:29 | W.PM.OP ---
Date of service: 06/18/20 Time of Service: 08:30 Operative Note Operative Note DATE OF PROCEDURE: 06/17/20 PRE-OP DIAGNOSIS: hx of high grade cervical dysplasia POST-OP DIAGNOSIS: same PROCEDURE: cervical conization SURGEON: Hilda Appiah ANESTHESIA: MAC ESTIMATED BLOOD LOSS: 10 PATHOLOGY: other (cervical conization specimen. stitch at 12 o'clock) COMPLICATIONS: None Patient was transported to: PACU Patient's condition: stable Indications: Patient has a history of positive high risk HPV with most recent findings of LOULOU-2-3 at the time and ECC on 04/19/2020 LEEP procedure was performed on 05/13/2020 with no evidence of cervical dysplasia. Recommended an excisional procedure for diagnosis and treatment. Findings: Previous LEEP site well-healed. Cervix from 7:00 to 4:00 is tethered to the vaginal epithelium which partially obscures the most inferior portion of the body of the cervix. Is still possible to observe the cervix in its entirety and manipulate the cervix without difficulty. Procedure Description: Patient was taken to the operating room where she was placed in the dorsal supine position and monitored anesthesia care was administered without difficulty. She was then placed in the dorsal lithotomy position in [facility] stirrups prepped and draped in the usual sterile fashion. A bivalve speculum was placed into the vagina and a paracervical block was performed with quarter percent Marcaine without epinephrine a total of 13 cc was injected in the 4 and 7 block paracervical space respectively. The anterior body of the cervix was then infiltrated with 1 cc of 1% lidocaine with epinephrine and the anterior body of the cervix grasped with a single-tooth tenaculum. The body of the cervix was then infiltrated circumferential fashion with 1% lidocaine with epinephrine. 0 Vicryl suture was then placed through the right and left lateral margins of the cervix tied and held long. An attempt at placing a uterine probe was unsuccessful. I was unable to penetrate beyond the internal os despite using several small cervical dilators. A scalpel was then used to incise the body of the cervix incorporating both the ectocervix and a portion of the endocervical canal in a circumferential fashion. A cone-shaped sample was removed without difficulty and after being oriented at the 12 o'clock position with a single suture it was passed off of the operative field. Attention was then turned to the cervix where a single suture of 0 Vicryl was placed through the echo and endocervical canal and tied on the surface of the cervix. A similar suture was placed through the 6:00 portion of the cervix and also tied on the surface. Until based was then applied to the endocervical canal and hemostasis was noted to be excellent. The previously held long Vicryl sutures were then tied in the midline of the cervix. Final inspection of the cervix was performed and excision site was hemostatic. All instruments removed from the patient's vagina. She was placed in the dorsal supine position awakened and transferred to recovery area in stable condition all sponge lap needle counts correct x2.
== END 2020-06-17 14:41 | disposition home or self-care (01) ==
PROVIDERS: PCP Nurse Practitioner Family; Visit Provider Obstetrics & Gynecology Gynecology
PROC: 0UB97ZZ Excision of Uterus, Via Natural or Artificial Opening (ICD-10-PCS; CPT 57520; principal; 2020-06-17 11:30)
DX: N87.1 Moderate cervical dysplasia (principal)
CPT/HCPCS: 57520; NC; 88307; J2001; J2405; J2704

== ENCOUNTER 2020-07-10 04:47 | Outpatient (CLI) | payer BC, SELFPAY ==
[2020-07-10 14:09] LABS: HGB 12.9 g/dL (11.2-15.7); MCH 30.1 pg (27.0-33.0); MCHC 32.3 % (32.0-36.0); MCV 93.2 fL (80-95); MPV 10.3 fL (8.0-11.0); Platelet Count 411 10^3/uL (130-400); RBC 4.29 10^6/uL (3.93-5.22); RDW 13.1 % (11.7-14.6); RDW-SD 44.9 fL; WBC 7.75 10^3/uL (4.4-10.8)
[2020-07-10 15:01] LABS: Anion Gap 10.5 mmol/L (3-11); BUN 21 mg/dL (7-18); CO2 25.5 mmol/L (21.0-32.0); CREATININE 1.02 mg/dL (0.55-1.02); Chloride 102 mmol/L (98-107); Estimated GFR 55.47 (mL/min/1.73m2); Glucose 85 mg/dL (74-106); Potassium 3.8 mmol/L (3.5-5.1); Sodium 138 mmol/L (136-145)
[2020-07-12 19:05] LABS: COVID-19 RT-PCR Result NEGATIVE (Negative)
== END 2020-07-10 05:07 ==
PROVIDERS: PCP Nurse Practitioner Family; Visit Provider Obstetrics & Gynecology Gynecology
DX: R87.613 High grade squamous intraepithelial lesion on cytologic smear of cervix (HGSIL) (principal); Z11.59 Encounter for screening for other viral diseases; Z01.818 Encounter for other preprocedural examination; Z01.812 Encounter for preprocedural laboratory examination
CPT/HCPCS: 36415; 80048; 85027; 86850; 86900; 86901; U0003

== ENCOUNTER 2020-07-15 12:11 | Observation (INO) | payer BC, SELFPAY ==
[2020-07-15] VITALS (20 sets, daily range): BP systolic 86–110; BP diastolic 42–64; PULSE 60–73; RESP 13–20; TEMP 36–37; O2SAT 87–100
[2020-07-15] MEDS: Lactated Ringers 1,000 ML 80 ML IV ×2 (07:13→11:00)
[2020-07-15] MEDS: ceFAZolin 2 GM/50 ML BAG IVPB (07:43)
[2020-07-15] MEDS: Scopolamine 1 MG/3 DAYS PATCH TD (08:00)
[2020-07-15] MEDS: Bupivacaine 0.25% Pres-Free 30 ML VIAL (08:27)
--- NOTE | 2020-07-15 08:39 | UTER_PTH ---
PATIENT: Shaina Lewis LOC: [id number]#:[id number] AGE/SX: 59/F ROOM: RE07/15/[address]: Hilda Appiah : 1960 BED: A DIS: 07/16/2020 SPEC #: [id number] RECD: 07/15/20 12:45 STATUS: CHERYL REQ #: [id number] GARETH: 07/15/20 08:[address]: Albetro Haq DEPT: Surgical Specimen RECD BY: Jennifer Gross ENTERED: 07/15/20 12:47 SP TYPE: UTER OTHR DR: Rachel Lara Tissues: 1 - OVARY BIOPSY 2 - UTERUS W OR W/O OVARIES(NOT TUMOR/PROLAPSE) Procedures: GROSS AND MICRO LEVEL 6 Comments: [id number]
[2020-07-15] MEDS: Cellulose,Oxidized 4X8 1 PACKET MC (11:03)
[2020-07-15] MEDS: Normal Saline Flush 10 ML SYR IVP ×2 (16:11→22:51)
[2020-07-15] MEDS: Ketorolac 30 MG/ML VIAL IVP ×2 (16:11→22:51)
[2020-07-15] MEDS: Lactated Ringers 1,000 ML 125 ML IV ×2 (16:12→23:57)
--- NOTE | 2020-07-15 18:17 | NUR.NOTE ---
Nursing Note: pt transferred to Medsur floor from PACU. VSS and pt comfortable.
--- NOTE | 2020-07-15 18:18 | NUR.NOTE ---
Nursing Note: 1220- pt transferred from PACU to med-surg floor via hospital bed. VSS and pt comfortable.
[2020-07-15] MEDS: Simvastatin 10 MG TAB PO (22:51)
[2020-07-16] VITALS (17 sets, daily range): BP systolic 87–100; BP diastolic 52–59; PULSE 57–77; RESP 16–22; TEMP 36.7–37.7; O2SAT 89–99
[2020-07-16] MEDS: Normal Saline Flush 10 ML SYR IVP (04:27)
[2020-07-16] MEDS: Ketorolac 30 MG/ML VIAL IVP (04:27)
[2020-07-16 08:21] LABS: HCT 32.7 % (36.0-46.0); HGB 10.4 g/dL (11.2-15.7); MCH 30.6 pg (27.0-33.0); MCHC 31.8 % (32.0-36.0); MCV 96.2 fL (80-95); Platelet Count 253 10^3/uL (130-400); RDW 13.4 % (11.7-14.6); RDW-SD 48.1 fL; WBC 8.14 10^3/uL (4.4-10.8)
[2020-07-16] MEDS: Lactated Ringers 1,000 ML 125 ML IV (08:48)
[2020-07-16] MEDS: Ibuprofen 600 MG TAB PO (09:00)
[2020-07-16] MEDS: NALBUPHINE 5 MG in Normal Saline 50 ML 100 MG IVPB (09:01)
[2020-07-16] MEDS: Acetaminophen 325 MG TAB 650 MG PO (09:01)
--- NOTE | 2020-07-16 10:23 | W.PM.PROGNOT ---
Date of Service Date of service: 07/16/20 Time of Service: 10:23 Subjective Subjective Patient reports: no new complaints, tolerating a regular diet, voiding w/o difficulty, no flatus and no bowel movement Interval history since last seen: Postop day 1 laparoscopic assisted vaginal hysterectomy with bilateral salpingo-oophorectomy. Postop course has been uncomplicated. Pain has been well controlled she had a spinal and general endotracheal anesthesia at the time of surgery. Reports feeling a little dizzy having gotten out of bed today. Plan is to advance her ambulation under supervision. Exam Const General: comfortable and no acute distress Nutritional Appearance: average body habitus Orientation: alert, awake and oriented x3 Resp Effort & Inspection: normal respiratory effort GI Inspection: normal to inspection and scar (Port sites well approximated, skin glue in place. Beginnings of ecchymosis) Palpation: soft, no masses and nontender General: deferred Skin General skin exam: no rashes or lesions noted Extrem General: normal to inspection Psych Appearance: grossly normal Mental Status: mental status grossly normal Speech and Movement: speech and movement normal Mood: congruent mood Objective Last Vital Signs Temp 98.1 F 07/16/20 07:17 Pulse 66 07/16/20 07:17 Resp 18 07/16/20 07:34 BP 100/56 L 07/16/20 08:58 Pulse Ox 99 07/16/20 07:17 Laboratory Results - last 24 hr 07/16/20 08:05 WBC 8.14 RBC 3.40 L Hgb 10.4 L Hct 32.7 L MCV 96.2 H MCH 30.6 MCHC 31.8 L RDW 13.4 Plt Count 253 D MPV 10.0
--- NOTE | 2020-07-16 10:27 | W.PM.DS.N ---
Date of service: 07/16/20 Time of Service: 10:27 DS: Diagnosis Discharge Diagnosis (1) History of vaginal hysterectomy: Status: Acute (2) H/O bilateral salpingo-oophorectomy: Status: Acute Discharge Plan Disposition Patient Disposition: HOME Condition: Good Discharge Details Reason For Visit: LAPAROSCOPIC ASSISTED VAGINAL HYSTERECTOMY Admit Date/Time: 07/15/20 12:11 Admit Provider: Hilda Appiah Attending Provider: Hilda Appiah Primary Care Provider: Rachel Lara [facility] Course Hospital Course: Patient was admitted on the morning of surgery and underwent a laparoscopic vaginal hysterectomy and bilateral salpingo-oophorectomy. Her postop course was uncomplicated she was discharged home on postop day #1 tolerating regular diet and using NSAIDs for pain control. Final pathology is pending. The plan is to have her follow-up in approximately 2 weeks for inspection of incisions and to discuss pathology results. Home Meds and New Rx's Prescriptions: No Action desloratadine [Clarinex] 5 mg tablet 5 mg PO DAILY RF: 0 montelukast [Singulair] 10 mg tablet 10 mg PO QPM RF: 0 simvastatin 10 mg tablet 10 mg PO QHS RF: 0 cholecalciferol (vitamin D3) 2,000 unit capsule 2,000 unit PO DAILY RF: 0 vitamin B complex capsule 1 cap PO DAILY RF: 0 sertraline 100 MG tablet 100 mg PO HS RF: 0 Discharge Instructions Instructions: Laparoscopic Hysterectomy (DC) Additional Instructions: No lifting over 10 pounds or driving until you return to the office in approximately week for incision check. Take acetaminophen and ibuprofen for pain as you have been doing in the hospital. You may shower at any time. Avoid taking a bath until you have a postop check with Dr. Appiah. You have a follow-up postop appointment with Dr. Appiah for 07/27/20. Stand Alone Forms: [facility] Post Gynecology Surgery, Nursing Discharge Form Referrals: Hilda Appiah MD [ [facility] STAFF PHYSICIAN] - 08/04/20 11:20 am Activity:: Activity as Tolerated Equipment/Supplies:: No Equipment Needed Diet:: As Tolerated Discharge Orders Discharge Orders: Discharge Order (Routine); Ordered 07/16/20 Ordered By: Hilda Appiah DS: Summary Status at Discharge Functional status at discharge: independent ambulation Overall status at discharge: patient is progressing back to baseline Mental Status: mental status grossly normal Speech and Movement: speech and movement normal Mood: congruent mood Affect: normal affect Exam Narrative Exam Narrative: Const General: comfortable and lethargic (will fall asleep when awake in chair.) Nutritional Appearance: average body habitus Orientation: alert, awake and oriented x3 Resp Effort & Inspection: normal respiratory effort Cardio Rate: regular rate GI Inspection: scar ( Trochar sites well approximated with with skin glue) Palpation: soft and no masses General: deferred Skin General skin exam: no rashes or lesions noted Extrem General: normal to inspection Psych Appearance: grossly normal Mental Status: mental status grossly normal Speech and Movement: speech and movement normal Mood: congruent mood Affect: normal affect DS: Data Vitals/I&O Vitals and I&O: Vital Signs Temperature 98.1 F 07/16/20 07:17 Temperature Source Temporal Artery Scan 07/16/20 07:17 Pulse 66 07/16/20 07:17 Pulse Rhythm Regular 07/16/20 06:32 Respiratory Rate 18 07/16/20 07:34 Respiratory Effort Non-Labored 07/16/20 06:32 Respiratory Depth Normal 07/16/20 06:32 Respiratory Pattern Normal 07/16/20 06:32 Blood Pressure 100/56 L 07/16/20 08:58 Pulse Oximetry 99 07/16/20 07:17 Respiratory End-tidal CO2 35 07/15/20 12:05 Oxygen Delivery Method Nasal Cannula 07/16/20 07:17 Oxygen Flow Rate 2 07/16/20 07:17 Pain Level 1 07/16/20 09:01 Comment 07/16/20 07:17 Intake & Output 07/15/20 07/15/20 07/16/20 11:59 23:59 11:59 Intake Total 1350 / 3318.75 1968.75 / 3318.75 1000 / 1000 Output Total 450 / 1300 850 / 1300 1075 / 1075 Balance 1118.75 / 75 -75 / -75 Weight 143 lb 1.28 oz Intake: IV 1350 / 2318.75 968.75 / 2318.75 1000 / 1000 Oral 1000 / 1000 Output: Urine 150 / 1000 850 / 1000 1075 / 1075 Estimated Blood Loss 300 / 300 Other: Urine Color Indigo Indigo Yellow Urine Appearance Clear Clear Clear Comment BLUE COLORED URINE DUE TO INDIGO CARMINE & METHYLENE BLUE blue color voided in BSC Emesis Description None None Voiding Methods Bedside Commode Data Completed and Pending Labs on day of discharge: Labs from last 24 hours 07/16/20 08:05 WBC 8.14 RBC 3.40 L Hgb 10.4 L Hct 32.7 L MCV 96.2 H MCH 30.6 MCHC 31.8 L RDW 13.4 Plt Count 253 D MPV 10.0 PFSH Medical History 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 Atypical metaplastic cells on biopsy suggestive of inflammatory process. Plan to treat with vaginal estradiol for 6 months and then re-colpo. Degenerative joint disease of right knee Depression pt. states they were panic attacks Elevated lipids Tear of medial meniscus of right knee s/p right knee arthroscopy on 04/14/20 Vaginal atrophy Rx with Premarin cream. Surgical History (Updated 07/16/20 @ 10:29 by Hilda Appiah MD) H/O bilateral salpingo-oophorectomy H/O cone biopsy of cervix 06/17/20 cold knife cone. H/O LEEP History of breast biopsy (05/29/14) Hx of colposcopy with cervical biopsy 2016. Nl 2019. Status post arthroscopy of right knee (04/14/20) Status post breast reduction (05/29/14) Family History Mother Alzheimer's dementia Father No problems noted. 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
--- NOTE | 2020-07-16 14:21 | PDOC.CMPRO ---
- If Service Date Differs Date of service: 07/16/20 Time of Service: 14:21 Care Management Progress Note S/O: Shaina was siting up in a chair when CM met with her. She was pleasant and cooperative and stated that she was doing well. She informed CM that she would be discharging home soon with her . She denied the need for services at home. A: Shaina is a 59 year old woman admitted on 07/14/20 for a LAVH P: Shaina will discharge home with no new services. She will follow up with her surgeon and community providers and transport with family.
--- NOTE | 2020-07-16 18:37 | W.PM.OP ---
Date of service: 07/16/20 Time of Service: 18:37 Operative Note Operative Note DATE OF PROCEDURE: 07/15/20 PRE-OP DIAGNOSIS: High-grade cervical dysplasia POST-OP DIAGNOSIS: same PROCEDURE: Laparoscopic-assisted vaginal hysterectomy with bilateral salpingo-oophorectomy SURGEON: Hilda Appiah STOCKING INSPECTOR: Shahana Cortes ANESTHESIA: GETA and spinal ESTIMATED BLOOD LOSS: 300 PATHOLOGY: other (Uterus cervix right and left ovary left fallopian tube) COMPLICATIONS: None Patient was transported to: PACU Patient's condition: stable Indications: 59yo who has had since 2014 persistent high risk HPV on screening Paps. Colposcopy directed biopsies had been negative for high grade cervical dysplasia until 03/2020. An ECC performed at that time showed LOULOU-[id number]-3. Subsequent LEEP was negative for dysplasia. 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 Patient requested definitive therapy. Findings: Posterior cervix was adherent to posterior vaginal fourchette obscuring the body of the cervix from 4 to 7 o'clock position. The cervix was nearly flush with the superior vaginal wall. There were remnants of sutures from previous cervical conization. The pubovesical cervical fascia was densely adherent to the cervix as was the rectovaginal fascia. There were filmy adhesions of the small intestine to the left pelvic sidewall. Both ovaries appeared normal. Left fallopian tube had been ligated in the mid isthmic portion, the right fallopian tube was not visible. Upper abdomen appeared normal Procedure Description: Patient was taken to the operating room where she was placed in the sitting position and spinal anesthesia was administered without difficulty. She was then placed in the dorsal supine position and general endotracheal anesthesia was administered. She was then placed in the dorsal lithotomy position in [facility] with SCDs in place. After being prepped and draped in the usual sterile fashion a surgical timeout was performed. She received 2 g of Ancef prior to skin incision. Mccarty catheter was placed to gravity drainage. A bivalve speculum was placed in the vagina the anterior lip of the cervix was grasped with a single-tooth tenaculum and a [employer] uterine manipulator was introduced into the uterus through the cervix and left in place. Attention was then turned to the patient's abdomen. The inferior umbilicus was infiltrated with quarter percent Marcaine without epinephrine. A scalpel was then used to make an vertical incision in the vertical fold. Two penetrating towel clips were used to tent up the skin and through the periumbilical incision a Veres needle was introduced into the abdomen and intra-abdominal placement confirmed by a drop in the intra-abdominal pressure. Once a pneumoperitoneum was established a 12 mm Visiport was placed under direct visualization and intra-abdominal placement confirmed by use of the laparoscope. Patient was then placed in Trendelenburg position. At two sites approximately 6 cm diagonally from the umbilical incision the skin was infiltrated with quarter percent Marcaine without epinephrine, incised with a scalpel and two 5 mm lower ports were placed under direct visualization. After careful inspection of the pelvis and determining that the course of both ureters were distant from the operative site a LigaSure electrocautery device was used to incise the filmy adhesions of the small bowel adherent to the left pelvic sidewall. This allowed visualization and manipulation of the left adnexa. LigaSure device and sequentally clamped, cauterized and incised the remnant of the fimbria of the left fallopian tube from from surface of the ovary to which it was attatched. Left fallopian tube was delivered through the 10 mm port port. The left broad ligament was then sequentially clamped, cauterized and the both the left round ligament and ovarian suspensory ligament were transected and the pedicles noted to be hemostatic. The insertion of the left uterine artery/venous complex into the left lower uterine segment was clamped and cauterized in 3 contiguous locations. The Ligasure device was then used to incise the vesico-uterine peritoneum off of the lower uterine segment and retract the bladder away from the lower uterine segment. No evidence of a right fallopian tube either the distal or proximal ends. The right round ligament was clamped, cauterized and transected with the Ligasure device. This allowed access to the ovarian suspensory ligament and remaining broad ligament which were clamped, cauterized and transected in a sequential fashion. The uterine vessel complex insertions at the lower uterine segement were easily cauterized and the vesicouterine peritoneum was incised across the lower uterine segment and the bladder flap dissected off of the the lower uterine segement. All pedicle sights were inspected and noted to be hemostatic. Decision was made to proceed with the vaginal portion of the case. Laparoscopic instruments were removed from the ports , the pneumoperitoneum was reduced, and the area was covered with sterile drape. A weighted vaginal speculum was placed in the vagina and the anterior and posterior lips of the cervix were grasped with Anderson clamps. Prior to incising the body of the cervix the vaginal epithelium had to be bluntly dissected off of the body of the posterior cervix. The epithelium of the cervix was then incised in a circumferential fashion using Bovie electrocautery. The posterior cul-de-sac was entered sharply and through the incision a right angle retractor was placed. The left and right uterosacral ligament complexes were difficult to identify and instead a segment of the redundant vaginal epithelium on the right vaginal sidewall was clamped transected and cauterized to allow sufficient mobilization of the patient's right uterosacral ligament complex. Right uterosacral ligament complex was clamped cauterized, transected, and suture-ligated which was then held long. On the contralateral uterosacral ligament complex it too was dissected clamped transected and suture-ligated. This allowed sufficient mobilization of the vesicouterine fascia to identify a tissue plane and enter the anterior cul-de-sac bluntly sharply. Through this incision a curved Jung retractor was inserted and used to retract bladder away from the operative field. The remaining right and left broad ligament attatchments were sequentially clamped, cauterized, and transected and the specimen was delivered and passed off of the operative field. The peritoneum was reapproximated with the posterior vaginal cuff with a 0 Vicryl. The vaginal cuff was reapproximated in a horizontal fashion with a interrupted sutures of 0 Vicryl. Bladder cystoscopy was performed and brisk efflux of urine was observed from each of the ureteral orifices. The Mccarty catheter was reinserted to gravity drainage. Instruments removed from the vagina and attention was again turned to the abdomen where a pneumoperitoneum was reestablished and the pelvis inspected using the laparoscope. The vaginal cuff was intact and with a small amount of bright red blood at the lateral margin of the cuff. A piece of Surgicel was introduced into the pelvis through the port and a placed against the left vaginal cuff incision to achieve hemostasis.. The pedicles were noted to be hemostatic. The instruments were removed from the port sites, the pneumoperitoneum reduced and the ports removed. The fascia of the periumbilical skin incision was closed with interrupted suture of 0 Vicryl. The skin of all port site incisions were reapproximated with a subcuticular closure of 4-0 Vicry and and covered with skin glue. Patient was placed in the dorsal supine position awakened extubated and transported recovery area in stable condition. All sponge lap needle counts correct x2.
== END 2020-07-16 13:46 | disposition home or self-care (01) ==
LOC: MS 12:28
PROVIDERS: Admitting Provider Obstetrics & Gynecology Gynecology; PCP Nurse Practitioner Family; Visit Provider Obstetrics & Gynecology Gynecology
PROC: 0UT9FZZ Resection of Uterus, Via Natural or Artificial Opening With Percutaneous Endoscopic Assistance (ICD-10-PCS; CPT 58552; principal; 2020-07-15 07:30)
PROC: 0TJB8ZZ Inspection of Bladder, Via Natural or Artificial Opening Endoscopic (ICD-10-PCS; CPT 52000; 2020-07-15 07:30)
DX: N87.1 Moderate cervical dysplasia (principal); E78.5 Hyperlipidemia, unspecified; F32.9 Major depressive disorder, single episode, unspecified
CPT/HCPCS: 58552; 36415; 85027; NC; 88307; 88309; G0378; J0690; J1885; J2001; J2250; J2405; J2704; J3010; J3490

== ENCOUNTER 2020-09-01 21:29 | Outpatient (REF) | payer BC, SELFPAY ==
[2020-09-02 14:18] LABS: COVID-19 RT-PCR UVMMC Result Negative (Negative)
== END 2020-09-01 21:30 | disposition home or self-care (01) ==
LOC: NCHCN 21:29
PROVIDERS: PCP Nurse Practitioner Family; Visit Provider Family Medicine
DX: Z20.822 Contact with and (suspected) exposure to COVID-19 (principal)
CPT/HCPCS: U0003

== ENCOUNTER 2020-09-04 19:31 | Outpatient (REF) | payer BC, SELFPAY ==
[2020-09-05 14:38] LABS: COVID-19 RT-PCR UVMMC Result Negative (Negative)
== END 2020-09-04 19:32 | disposition home or self-care (01) ==
LOC: NCHCN 19:31
PROVIDERS: PCP Nurse Practitioner Family; Visit Provider Family Medicine
DX: Z20.822 Contact with and (suspected) exposure to COVID-19 (principal)
CPT/HCPCS: U0003

== ENCOUNTER 2020-12-24 16:00 | Outpatient (REF) | payer BC, SELFPAY ==
[2020-12-24 21:28] LABS: ESR 20 mm/hr (0-30)
[2020-12-24 21:39] LABS: ALT 30 U/L (14-59); AST 15 U/L (15-37); Alkaline Phosphatase 83 U/L (46-116); Anion Gap 11.2 mmol/L (3-11); BUN 25 mg/dL (7-18); Bilirubin, Total 0.5 mg/dL (0.2-1.0); CO2 25.8 mmol/L (21.0-32.0); Calcium 9.4 mg/dL (8.5-10.1); Chloride 105 mmol/L (98-107); Estimated GFR 56.56 (mL/min/1.73m2); Glucose 95 mg/dL (74-106); Potassium 3.9 mmol/L (3.5-5.1); Sodium 142 mmol/L (136-145); TSH (W/Ref FT4) 1.42 uIU/mL (0.36-3.74); Total Protein 7.5 g/dL (6.4-8.2)
[2020-12-24 21:46] LABS: C-Reactive Protein < 0.05 mg/dL (0.0-0.3)
[2020-12-27 23:17] LABS: Anaplasma phagocytophilum Negative (Negative); B. miyamotoi PCR Negative (Negative); Babesia divergens/MO-1 Negative (Negative); Babesia duncani Negative (Negative); Babesia microti Negative (Negative); Ehrlichia chaffeensis Negative (Negative); Ehrlichia ewingii/canis Negative (Negative); Ehrlichia muris eauclairensis Negative (Negative)
[2020-12-28 08:53] LABS: Cyclic Citrullinated Peptide <2.5 U/mL (<5.0)
[2020-12-28 10:43] LABS: Lyme Ab w Rflx to Lyme Confirm Negative (Negative)
[2020-12-28 11:07] LABS: Hepatitis C Ab w Rflx HCV PCR Negative (Negative)
[2020-12-29 07:29] LABS: Calculated LDL 118 mg/dL (<100); Cholesterol 262 mg/dL (<200); HDL Cholesterol 90 mg/dL (40-60); Triglyceride 270 mg/dL (<150)
[2020-12-29 15:40] LABS: ANA Interpretation Negative (Negative)
== END 2020-12-24 16:01 | disposition home or self-care (01) ==
LOC: NCHCN 16:00
PROVIDERS: PCP Nurse Practitioner Family; Visit Provider Nurse Practitioner Family
DX: E78.5 Hyperlipidemia, unspecified (principal); Z00.00 Encounter for general adult medical examination without abnormal findings; K30 Functional dyspepsia; F90.0 Attention-deficit hyperactivity disorder, predominantly inattentive type; M79.641 Pain in right hand; M79.642 Pain in left hand; Z11.59 Encounter for screening for other viral diseases
CPT/HCPCS: 80053; 80061; 85652; 86200; 86803; 87798; 84443; 86038; 86140; 86618

== ENCOUNTER 2020-12-29 01:36 | Outpatient (CLI) | payer BC, SELFPAY ==
--- NOTE | 2020-12-29 14:05 | DI.RAD_ITS ---
Exam(s) XR HAND LT COMPLETE EXAM: XR HAND LT COMPLETE CLINICAL HISTORY: BILAT HAND PAIN, M79.643 TECHNIQUE: COMPARISON: CR XR HAND RT COMPLETE from 12/29/2020 FINDINGS: Three views were obtained. There is some loss of the cartilaginous joint spaces of multiple IP joint s, particularly the DIP joints. Mild marginal osteophyte formation noted at multiple sites, particul milan at the DIP joints. IMPRESSION: Mild degenerative changes predominantly involving the DIP joints. RADIATION DOSE DELIVERED: Total DLP
--- NOTE | 2020-12-29 14:05 | DI.RAD_ITS ---
Exam(s) XR HAND RT COMPLETE EXAM: XR HAND RT COMPLETE CLINICAL HISTORY: BILAT HAND PAIN, M79.643 TECHNIQUE: COMPARISON: CR RIGHT HAND COMPLETE from 11/25/2017 FINDINGS: Three views were obtained. There is mild narrowing of multiple IP joints, most marked at the DIP kaushal nts of index and middle fingers. Mild marginal osteophyte formation also noted at multiple sites inv olving IP joints. Note is also made of mild marginal osteophyte formation at the greater multangular 1st metacarpal joint. IMPRESSION: Degenerative changes most prominent involving DIP joints, particularly at the index finger and middle finger. RADIATION DOSE DELIVERED: Total DLP
== END 2020-12-29 01:56 ==
PROVIDERS: PCP Nurse Practitioner Family; Visit Provider Nurse Practitioner Family
DX: M79.641 Pain in right hand (principal); M79.642 Pain in left hand; M25.741 Osteophyte, right hand; M25.742 Osteophyte, left hand; M13.841 Other specified arthritis, right hand; M13.842 Other specified arthritis, left hand
CPT/HCPCS: 73130

== ENCOUNTER 2021-01-26 01:44 | Outpatient (CLI) | payer BC, SELFPAY ==
--- NOTE | 2021-01-26 | DI.MRI_ITS ---
Exam(s) MR LOWER JOINT LT WO EXAM: MR LOWER JOINT LT WO CLINICAL HISTORY: DAVON KNEE PAIN, M25.561, DERANGEMENT LT KNEE, M23.92 TECHNIQUE: Multiplanar multisequence MRI of the knee was performed. COMPARISON: There are no prior imaging studies of the left knee available at the time of this interp retation FINDINGS: EFFUSION: There is a prominent joint effusion and there is also a Marcum cyst in the medial popliteal fossa which measures 4 cm craniocaudal by 2 cm AP by 2 cm wide and which is so seated with some fluid dripping down the medial gastrocnemius implying that the Marcum cyst is at this partially ruptured. MARROW:There is no evidence of fracture, bone contusion, nor osteochondral defects.. There is a dege nerative subarticular cyst in the tibial plateau subjacent to the tibial spines, this measuring 6 by 4 millimeters. Some variant marrow signal seen in the distal femur metaphysis. PATELLOFEMORAL COMPARTMENT: The quadriceps tendon is intact. The patellar ligament is intact. There is no significant thinning of the retropatellar cartilage. No evidence of fissure nor signific ant chondral defect. No osteochondral defect at this level.There is no intraosseous signal to sugges t recent patellar dislocation. There are no patellar retinacular tears. CRUCIATE LIGAMENTS: There is partial tearing of the anterior cruciate ligament.The posterior cruciate ligament is intact. MEDIAL COMPARTMENT/MEDIAL MENISCUS: There are no obvious tears of the medial meniscus evident.However , there is mild increased signal at the junction of the meniscus and the medial collateral ligament.. There is mild degenerative signal change in the [place] cartilage over the medial femoral condyle. No prominent chondral defects. No osteochondral defects. No marginal osteophytes. No abnormal sign al in the subjacent medial tibial plateau. MEDIAL COLLATERAL LIGAMENT: Increased signal at its junction with the medial patellar retinaculum-par tial tearing. LATERAL COMPARTMENT/LATERAL MENISCUS: There is no evidence of lateral meniscal tear.There are no mark dral defects, osteochondral defects, subarticular marrow edema, nor osteophytes evident. ILIOTIBIAL BAND: Intact LATERAL COLLATERAL LIGAMENT COMPLEX: The fibular collateral ligament is intact. The biceps femoris t endon is intact.Popliteus muscle and tendon are intact. IMPRESSION: 1. There is significant signal abnormality in the anterior cruciate ligament consistent with partial tearing. Posterior cruciate ligament is intact. There is no evidence of pivot shift bone contusions . 2. Partial tearing at the junction of the medial patellar retinaculum and medial collateral ligament. No high-grade tear of the MCL. 3. No obvious meniscal tears. Mild meniscocapsular separate between the MCL and medial meniscus. 4. Large joint effusion and prominent Marcum cyst with measurements as above. There are no obvious ca lcified loose intra-articular bodies. The Marcum cyst is partially ruptured given that there is fluid leaking down the medial gastrocnemius DATA REPOSITORY:
== END 2021-01-26 02:04 ==
PROVIDERS: PCP Nurse Practitioner Family; Visit Provider Nurse Practitioner Family
DX: S83.412A Sprain of medial collateral ligament of left knee, initial encounter (principal); M23.92 Unspecified internal derangement of left knee; S76.112A Strain of left quadriceps muscle, fascia and tendon, initial encounter; M25.462 Effusion, left knee; M66.0 Rupture of popliteal cyst; X58.XXXA Exposure to other specified factors, initial encounter
CPT/HCPCS: 73721

== ENCOUNTER 2021-01-29 13:36 | Emergency (ER) | payer BC, SELFPAY ==
--- NOTE | 2021-01-29 13:30 | DI.RAD_ITS ---
Exam(s) XR ANKLE RT COMPLETE EXAM: XR ANKLE RT COMPLETE CLINICAL HISTORY: pain after twisting TECHNIQUE: COMPARISON: No exams were available for comparison FINDINGS: Three views were obtained. The ankle mortise is well maintained. There is cortical discontinuity of the dorsal aspect of distal talus suggesting a mildly displaced mildly comminuted impaction fracture . There is corresponding possible minimal cortical deformity of the anterior aspect of distal tibia. No other bony abnormality seen. IMPRESSION: RADIATION DOSE DELIVERED: Total DLP
[2021-01-29 13:39] VITALS: BP 128/76; PULSE 64; RESP 16; TEMP 36.6; O2SAT 98
--- NOTE | 2021-01-29 13:47 | W.ED.GENAD ---
Discharge Plan Disposition Patient Disposition: HOME Condition: Improving Discharge Details Clinical Impression: Closed fracture of talus of right foot Primary Care Provider: Rachel Lara ED Provider: Hermilo Maurer Home Meds and New Rx's Prescriptions: Continued desloratadine [Clarinex] 5 mg tablet 5 mg PO DAILY RF: 0 montelukast [Singulair] 10 mg tablet 10 mg PO QPM RF: 0 simvastatin 10 mg tablet 10 mg PO QHS RF: 0 cholecalciferol (vitamin D3) 2,000 unit capsule 2,000 unit PO DAILY RF: 0 vitamin B complex capsule 1 cap PO DAILY RF: 0 sertraline 100 MG tablet 100 mg PO HS RF: 0 Discharge Instructions Additional Instructions: As discussed, please wear walking boot while awake and on your feet, may remove for bathing and at bedtime. Crutches if needed. Elevate above the level heart to reduce pain and swelling Tylenol as needed for pain. We will refer you to orthopedics, please call the office at [phone] to confirm your appointment time. Medical Decision Making This is a 16-year-old female who presents stating she twisted her ankle while walking on level ground and then stepped into a defect in the ground. She did not injure herself in any other way. She now has right lateral ankle pain and swelling. Referred for x-ray which does reveal a mildly displaced comminuted fracture on the dorsal aspect of the talus. Patient is point tender at that location, I will treat her with immobilization in a short walking boot, crutches if needed, and follow-up with orthopedics which she has preplanned for 08 February.. HPI General Mode of arrival: ambulatory. Date/Time Provider Initiated Documentation: 01/29/21 13:37. Limitations to Documentation: no limitations. Information obtained by: patient. History of Present Illness 60 year old F presents to the emergency department with the chief complaint of Right ankle lateral pain, described as moderate, Quality is described as dull and constant, and is localized to the right and lower extremity. Patient reports no radiation. Patient started experiencing this minute(s) and it has been constant. Rest improves symptom(s), Movement worsens symptoms . Patient notes no other symptoms., syncope and weakness. Patient did receive the following treatments prior to arrival, NSAID Related Data Home Medications Medication Instructions Recorded Confirmed sertraline 100 mg PO HS tab-cap NS 11/09/12 01/29/21 cholecalciferol (vitamin D3) 50 2,000 unit PO DAILY 09/07/18 01/29/21 mcg (2,000 unit) capsule montelukast 10 mg tablet 10 mg PO QPM 09/07/18 01/29/21 simvastatin 10 mg tablet 10 mg PO QHS 09/07/18 01/29/21 vitamin B complex 1 cap PO DAILY 09/07/18 01/29/21 desloratadine 5 mg tablet 5 mg PO DAILY 09/13/19 01/29/21 Allergies Allergy/AdvReac Type Severity Reaction Status Date / Time penicillin G Allergy Severe unknown Verified 01/29/21 13:44 was hospitalized-age 4 seasonal Allergy Uncoded 01/29/21 13:44 General Stated Complaint: Orthopedic PABLO: 4 Review of Systems Narrative: 6 systems reviewed and otherwise negative [facility] Medical History 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 Atypical metaplastic cells on biopsy suggestive of inflammatory process. Plan to treat with vaginal estradiol for 6 months and then re-colpo. Cervical high risk human papillomavirus (HPV) DNA test positive Degenerative joint disease of right knee Depression pt. states they were panic attacks Elevated lipids Tear of medial meniscus of right knee s/p right knee arthroscopy on 04/14/20 Vaginal atrophy Rx with Premarin cream. Surgical History H/O bilateral salpingo-oophorectomy H/O cone biopsy of cervix 06/17/20 cold knife cone. History of breast biopsy (05/29/14) History of colposcopy Hx of colposcopy with cervical biopsy 2016. Nl 2019. Status post arthroscopy of right knee (04/14/20) Status post breast reduction (05/29/14) Family History Mother Alzheimer's dementia Father No problems noted. 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 Pleasant, well groomed, interactive. HEAD: Normocephalic, atraumatic ENT: Mucous membranes moist, oropharynx unremarkable, External ear exam unremarkable EYES: PERRL, EOMI NECK: Full ROM, no ZAHRAA, no menigismus EXT: Full ROM, right lateral malleolus with edema, soft tissue tenderness to palpation. 2+ DP bilaterally, sensation intact throughout Neuro: Grossly normal neurologic exam, conversant, interactive. Psych: Speech fluent, thoughts congruent, affect normal Course Vital Signs Vital signs: Vital Signs Temperature 36.6 C 01/29/21 13:39 Pulse 64 01/29/21 13:39 Respiratory Rate 16 01/29/21 13:39 Blood Pressure 128/76 01/29/21 13:39 Pulse Oximetry 98 01/29/21 13:39 Temperature 36.6 C 01/29/21 13:39 Temperature Source Oral 01/29/21 13:39 Pulse 64 01/29/21 13:39 Respiratory Rate 16 01/29/21 13:39 Blood Pressure 128/76 01/29/21 13:39 Blood Pressure Position Supine 01/29/21 13:39 Pulse Oximetry 98 01/29/21 13:39 Oxygen Delivery Method Room Air 01/29/21 13:39 Oxygen Flow Rate 0 01/29/21 13:39 Pain Level 5 01/29/21 13:39
--- NOTE | 2021-01-29 14:51 | NUR.NOTE ---
Nursing Note: DI will be emailing the patient's films to her @ [email or web address]. Tami Daly
== END 2021-01-29 14:53 | disposition home or self-care (01) ==
PROVIDERS: Emergency Provider Emergency Medicine; PCP Nurse Practitioner Family
DX: S92.191A Other fracture of right talus, initial encounter for closed fracture (principal); W17.2XXA Fall into hole, initial encounter; X50.9XXA Other and unspecified overexertion or strenuous movements or postures, initial encounter
CPT/HCPCS: 28430; 73610

== ENCOUNTER 2021-05-11 07:20 | Outpatient (REF) | payer BC, SELFPAY | END 2021-05-11 07:21 | disposition home or self-care (01) | LOC: NCHCN 07:20 | PROVIDERS: PCP Nurse Practitioner Family; Visit Provider Family Medicine | DX: R30.0 Dysuria (principal) | CPT/HCPCS: 87086 ==

== ENCOUNTER 2021-05-18 03:06 | Outpatient (CLI) | payer BC, SELFPAY ==
--- NOTE | 2021-05-18 15:00 | NS.NUTBLAN_ITS ---
Shaina was referred for Medical Nutrition Therapy for nutritional counseling on elevated lipids and weight management. 5'4 147 lbs BMI 25.5. Goal WT: 130- 135 lbs. Most recent labs (12/24/20) Chol: 262, LDL: 118, HDL: 90, Trig 270. TSH wnl. Meds include: zoloft, simvastatin. Family hx of diabetes. Shaina reports gaining 20 lbs after hysterectomy last year despite exercising for 40 min daily on stationary bike at home. Diet recall indicates average intake per day 5885-6427 kcal, 55-60 g protein with 75% of macronutrients consumed after 5 pm. Shaina also tends to snack after dinner on ice cream and cookies. Session today focused on how to follow 5652-5923 kcal meal plan with meals spaced out during day and no meals/snacks after 7 pm. Encouraged her to continue to exercise daily 40-60 minutes. Follow up will be by phone in 30 days. Goal weight loss: 1-2 lbs per week.
== END 2021-05-18 03:07 | disposition home or self-care (01) ==
LOC: DS 03:06
PROVIDERS: PCP Nurse Practitioner Family; Visit Provider Dietitian, Registered
DX: E78.5 Hyperlipidemia, unspecified (principal); E66.3 Overweight; Z68.25 Body mass index [BMI] 25.0-25.9, adult; Z71.3 Dietary counseling and surveillance
CPT/HCPCS: 97802

== ENCOUNTER 2021-06-21 02:41 | Outpatient (CLI) | payer BC, SELFPAY ==
[2021-06-21 10:30] LABS: Source Nasal/Nares
[2021-06-21 17:39] LABS: COVID-19 PCR Negative (Negative)
== END 2021-06-21 02:42 | disposition home or self-care (01) ==
LOC: LBO 02:41
PROVIDERS: PCP Nurse Practitioner Family; Visit Provider Student in an Organized Health Care Education/Training Program
DX: Z20.822 Contact with and (suspected) exposure to COVID-19 (principal)
CPT/HCPCS: 87635

== ENCOUNTER 2021-06-23 09:30 | Day surgery (SDC) | payer BC, SELFPAY ==
[2021-06-23] VITALS (8 sets, daily range): BP systolic 80–115; BP diastolic 29–88; PULSE 64–75; RESP 10–18; TEMP 36.3–36.7; O2SAT 98–100; BMI 25.7
--- NOTE | 2021-06-23 09:42 | W.PM.DSUDISC ---
Discharge Plan Disposition Patient Disposition: HOME Condition: Good Discharge Details Reason For Visit: Left knee internal derangement Attending Provider: Lenin Segal Primary Care Provider: Rachel Lara Home Meds and New Rx's Prescriptions: New acetaminophen 500 mg tablet 500 mg PO Q6H PRN (Reason: pain) Qty: 60 RF: 2 hydrocodone-acetaminophen 5-325 mg tablet 1 tab PO Q6H PRN (Reason: severe pain) Qty: 4 RF: 0 ibuprofen 600 mg tablet 600 mg PO TID PRN (Reason: pain) Qty: 60 RF: 0 Continued desloratadine [Clarinex] 5 mg tablet 5 mg PO DAILY RF: 0 montelukast [Singulair] 10 mg tablet 10 mg PO QPM RF: 0 simvastatin 10 mg tablet 20 mg PO QHS RF: 0 cholecalciferol (vitamin D3) 2,000 unit capsule 2,000 unit PO DAILY RF: 0 vitamin B complex capsule 1 cap PO DAILY RF: 0 sertraline 100 MG tablet 100 mg PO HS RF: 0 Discharge Instructions Stand Alone Forms: Philipp Knee Arthroscopy Equipment/Supplies: Partial Weight Bearing Crutches Activity:: Elevate Remove Dressings/Wound Care:: 72 hours Shower/Bathe:: 72 hours Diet:: As Tolerated Discharge Orders Discharge Orders: Discharge Order (Routine); Ordered 06/23/21 Ordered By: Adrianna Bernabe DS: Diagnosis Discharge Diagnosis (1) Internal derangement of left knee: Status: Acute
--- NOTE | 2021-06-23 10:03 | HPE_ITS ---
Assessment and Plan Assessment and plan (1) Internal derangement of left knee: Status: Acute Assessment and plan: Plan: She was screened by the nursing staff to have no symptoms or red flags for possible Covid-19 infection. Educated patient on surgery covering surgical technique, recovery process, benefits and risks including but not limited to risk of infection, blood clot, damage to soft tissue/blood vessels/nerves in detail. After discussion patient gives verbal understanding of risks and elects to proceed with scheduling surgery. Patient had opportunity to have questions answered to their satisfaction. They will contact office if issues arise. Patient will continue to be scheduled for diagnostic left knee arthroscopy with Dr. Segal. I interviewed and examined the patient with Adrianna Bernabe PA-C. I agree with the documentation as above. The assessment and plan were formulated with my direct involvement. Lenin Segal MD FAAOS FAAHKS History of Present Illness Narrative: Ms. Lewis is a 60-year-old female who presents for diagnostic left knee arthroscopy for internal derangement. Patient's been experiencing discomfort in her left knee for over 4 months. Patient has tried to treat symptoms with an injection on 02/08/2021 which provided symptomatic improvement for few weeks. Unfortunately, patient has continued to have intermittent pain with ambulation as well as with any twisting motions. Additionally patient tried to manage symptoms by taking NSAIDs and had given up activity including hiking. Due to patient's continued discomfort she was offered and elected to proceed with surgical intervention. Review of Systems Cardiovascular Cardiovascular: Denies chest pain, Denies dyspnea and Denies dyspnea on exertion Respiratory Respiratory: Denies dyspnea and Denies dyspnea on exertion REPLACED BY [facility] Medical History 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 Atypical metaplastic cells on biopsy suggestive of inflammatory process. Plan to treat with vaginal estradiol for 6 months and then re- colpo. Cervical high risk human papillomavirus (HPV) DNA test positive Degenerative joint disease of right knee Depression pt. states they were panic attacks Elevated lipids Tear of medial meniscus of right knee s/p right knee arthroscopy on 04/14/20 Vaginal atrophy Rx with Premarin cream. Surgical History H/O bilateral salpingo-oophorectomy H/O cone biopsy of cervix 06/17/20 cold knife cone. History of breast biopsy (05/29/14) History of colposcopy Hx of colposcopy with cervical biopsy 2016. Nl 2019. Status post arthroscopy of right knee (04/14/20) Status post breast reduction (05/29/14) Family History Mother Alzheimer's dementia Father No problems noted. 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[employer] Sexually active: No Current gender identity: female Do you feel safe at home: Yes Do you feel safe in your relationship?: Yes Female Reproductive History Menstrual Menopause type: natural History History 2 Para Hx # Term Pregnancies 2 Multiple births Hx # Pregnancies Ectopic pregnancies AB induced Hx Number of Living Children AB spontaneous Meds Allergies and Home Medications Allergies Allergy/AdvReac Type Severity Reaction Status Date / Time penicillin G Allergy Severe unknown Verified 06/23/21 09:46 was hospitalized-age 4 seasonal Allergy Uncoded 06/21/21 15:22 Home Medications Medication Instructions Recorded Confirmed Type sertraline 100 mg PO HS tab-cap NS 11/09/12 06/23/21 History cholecalciferol (vitamin D3) 50 2,000 unit PO DAILY 09/07/18 06/23/21 History mcg (2,000 unit) capsule montelukast 10 mg tablet 10 mg PO QPM 09/07/18 06/23/21 History simvastatin 10 mg tablet 20 mg PO QHS 09/07/18 06/23/21 History vitamin B complex 1 cap PO DAILY 09/07/18 06/23/21 History desloratadine 5 mg tablet 5 mg PO DAILY 09/13/19 06/23/21 History acetaminophen 500 mg PO Q6H PRN #60 tab 06/23/21 Rx ibuprofen 600 mg PO TID PRN #60 tab 06/23/21 Rx Exam Const General: cooperative and no acute distress Resp Effort & Inspection: normal respiratory effort and able to speak in complete sentences Auscultation: clear to auscultation bilaterally, no rales, no rhonchi and no wheezes Cardio Heart Sounds: S1 normal, S2 normal and no murmurs Pulses: radial pulses present bilaterally Skin General skin exam: no rashes or lesions noted Results Last Vital Signs Temp 36.7 C 06/23/21 09:35 Pulse 69 06/23/21 09:35 BP 115/66 06/23/21 09:35 Pulse Ox 98 06/23/21 09:35
[2021-06-23] MEDS: Lactated Ringers 1,000 ML 80 ML IV (10:30)
--- NOTE | 2021-06-23 10:42 | ANES.PREOP_ITS ---
General Info Date of Service Date Performed: 06/23/21 Height: 5 ft 4 in Weight: 68 kg Body Mass Index (BMI): 25.7 Surgical Procedure: Operation Date: 06/23/21 11:25 Proposed Procedures Side Surgeon p Knee Arthroscopy Left Lenin Segal MD Meds Allergies and Home Medications Allergies Allergy/AdvReac Type Severity Reaction Status Date / Time penicillin G Allergy Severe unknown Verified 06/23/21 09:46 was hospitalized-age 4 seasonal Allergy Uncoded 06/21/21 15:22 Home Medication Medication Instructions Recorded sertraline 100 mg PO HS tab-cap NS 11/09/12 cholecalciferol (vitamin D3) 50 2,000 unit PO DAILY 09/07/18 mcg (2,000 unit) capsule montelukast 10 mg tablet 10 mg PO QPM 09/07/18 simvastatin 10 mg tablet 20 mg PO QHS 09/07/18 vitamin B complex 1 cap PO DAILY 09/07/18 desloratadine 5 mg tablet 5 mg PO DAILY 09/13/19 acetaminophen 500 mg PO Q6H PRN #60 tab 06/23/21 ibuprofen 600 mg PO TID PRN #60 tab 06/23/21 Current Visit Medications: Current Medications Generic Name Dose Route Start Last Admin Trade Name Freq PRN Reason Stop Dose Admin Acetaminophen 650 mg 06/23/21 09:40 Acetaminophen 325 Mg Tab PO Q4H PRN PRN Hydrocodone Bitart/Acetaminophen 0 tab 06/23/21 09:40 Hydrocodone 5/Acetaminophen 325 Tab PO Q3H PRN PRN Pain Ringer's Solution 1,000 mls @ 80 mls/hr 06/23/21 06:00 IV 07/22/21 23:59 INFUSION RYAN Cefazolin Sodium/Dextrose 2 gm in 50 mls @ 100 mls/hr 06/23/21 06:00 Ancef Duplex IVPB 07/22/21 23:59 PREOP RYAN IV Miscellaneous Supplies 1 each 06/23/21 06:00 Iv Access IV 07/22/21 23:59 DIRECTED RYAN Sodium Chloride 0 ml 06/23/21 06:00 Normal Saline Flush 10 Ml Syr IV 07/22/21 23:59 PRN PRN Sodium Chloride 0 ml 06/23/21 06:00 Normal Saline 10 Ml Vial IJ 07/22/21 23:59 DIRECTED PRN Sterile Water 0 ml 06/23/21 06:00 Water,Injection,Sterile 10 Ml Vial IJ 07/22/21 23:59 DIRECTED PRN PFSH Active Problems Active Problems: Problem Status Onset Code Internal derangement of left knee M23.92 Closed fracture of talus of right foot 01/29/21 S92.101A H/O bilateral salpingo-oophorectomy Z90.79, Z90.722 History of vaginal hysterectomy Z90.710 Vaginal pruritus N89.8 Family history of breast cancer Z80.3 Family history of ovarian cancer Z80.41 Status post arthroscopy of right knee 04/14/20 Z98.890 Degenerative joint disease of right knee M17.11 Tear of medial meniscus of right knee S83.241A Vaginal atrophy N95.2 Elevated lipids Depression Medical History Medical History 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 Atypical metaplastic cells on biopsy suggestive of inflammatory process. Plan to treat with vaginal estradiol for 6 months and then re- colpo. Cervical high risk human papillomavirus (HPV) DNA test positive Degenerative joint disease of right knee Depression pt. states they were panic attacks Elevated lipids Tear of medial meniscus of right knee s/p right knee arthroscopy on 04/14/20 Vaginal atrophy Rx with Premarin cream. Surgical History Surgical History H/O bilateral salpingo-oophorectomy H/O cone biopsy of cervix 06/17/20 cold knife cone. History of breast biopsy (05/29/14) History of colposcopy Hx of colposcopy with cervical biopsy 2016. Nl 2019. Status post arthroscopy of right knee (04/14/20) Status post breast reduction (05/29/14) Tobacco Smoking/Tobacco Use Status: Former Tobacco Use Alcohol Alcohol Intake: current Alcohol intake frequency: 0-2 drinks per day Alcohol type: wine Details: Does not feel that she has a problem with alcohol Substance Use Substance use: Rarely Substance use type: marijuana Prental History History 2 Para Hx # Term Pregnancies 2 Multiple births Hx # Pregnancies Ectopic pregnancies AB induced Hx Number of Living Children AB spontaneous Vital Signs and Lab Results Vital Signs Most Recent Vital Signs in EMR: Most Recent Vital Signs Temp Pulse BP Pulse Ox 36.7 C 69 115/66 98 06/23/21 09:35 06/23/21 09:35 06/23/21 09:35 06/23/21 09:35 Lab Results Blood Type / Crossmatch: No Data to Display Complete Blood Count: No Data to Display Complete Metabolic Panel: No Data to Display Liver Function Panel: No Data to Display Coagulation Panel: No Data to Display Cardiac Panel: No Data to Display Arterial Blood Gas: No Data to Display Venous Blood Gas: No Data to Display Pancreas Panel: No Data to Display Thyroid Panel: No Data to Display Infectious Disease: Coronavirus (COVID-19)(PCR) Negative (Negative) 06/21/21 08:50 06/21/21 Coronavirus 2019 Source Nasal/Nares 06/21/21 08:50 06/21/21 Blood Cultures: No Data to Display Toxicology Panel: No Data to Display Anesthesia Assessment and Plan Anesthesia History Personal History: No History of Anesthesia Complications Family History: No Family History of Anesthesia Complications Exercise Tolerance Exercise Tolerance: Metabolic Equivalents>4 Pertinent Negatives Pertinent Negatives: No Symptoms of GERD (Rare Gerd always food related), No Major Cardiovascular Symptoms or Complaints, No Major Pulmonary Symptoms or Complaints and No History of CVA/TIA Cardiac & Pulmonary Exam Cardiac Exam: Normal S1/S2 Heart Sounds Pulmonary Exam: Clear Bilateral Breath Sounds Implantable Cardiac Device Does patient have a Pacemaker or an ICD?: No Airway Exam Known Difficult Airway: No Mallampati Class: 2 Mouth Opening: Normal (> 3cm) Thyromental Distance: Greater than 3 cm Neck Range of Motion: Full ROM Neck Circumference: Normal Teeth Condition: Normal Dentition ASA Classification ASA Score: ASA 2 Emergency Case?: No NPO Status NPO Status: NPO Clears >2 hours, Solids >8 hours Anesthesia Plan Resuscitation Status: Full Code Anesthesia Technique: Spinal Anesthesia Airway Planned: Natural Airway Monitors Used: Standard Monitors Preoperative Comments:: Patient would like to be awake and watch the procedure.
[2021-06-23] MEDS: ceFAZolin 2 GM/50 ML BAG IVPB (11:42)
[2021-06-23] MEDS: Bupivacaine 0.5% Pres-Free 30 ML VIAL (12:10)
--- NOTE | 2021-06-23 13:29 | W.ANESPOSTOP ---
Postoperative Evaluation Date, Time and Location Date Performed: 06/23/21 Time Performed: 13:14 Patient Location: PACU Vital Signs Most Recent Imported Vital Signs: Most Recent Vital Signs Temp Pulse Resp BP Pulse Ox 36.6 C 64 16 107/88 100 06/23/21 13:25 06/23/21 13:25 06/23/21 13:25 06/23/21 13:25 06/23/21 13:25 Pain Score Most Recent Pain Score: Most Recent Pain Score Pain Level 0 06/23/21 13:25 Assessment Mental Status: Awake (Alert & Oriented to Patient Baseline) Airway and Respiratory Function: Patent airway with normal (patient baseline) respiratory exam Cardiovascular Function: Hemodynamically Stable Hydration Status: Adequately Hydrated Nausea & Vomiting: No Nausea or Vomiting Pain: Pt. Denies Any Pain Peripheral Nerve Block: Patient did not receive a nerve block
--- NOTE | 2021-06-23 16:11 | ROE_ITS ---
Date of service: 06/23/21 Time of Service: 13:11 Operative Note Operative Note DATE OF PROCEDURE: 06/23/21 PRE-OP DIAGNOSIS: Left Knee Internal Derangement POST-OP DIAGNOSIS: other (Left Medial Meniscus Tear) PROCEDURE: Left Knee Arthroscopic Partial Medial Menisectomy SURGEON: Lenin Segal ANESTHESIA TYPE: Spinal Refer to Anesthesia Record ESTIMATED BLOOD LOSS: 0 PATHOLOGY: none sent TOURNIQUET TIME: 0 COMPLICATIONS: None Patient was transported to: PACU Patient's condition: stable Indications: I have seen Shaina in clinic for symptoms of a meniscus tear. MRI was nonconfirmatory but her symptoms and history were fitting with this diagnosis. Nonoperative measures were exhausted but disability and pain persis cherise. I discussed knee arthroscopy with meniscal intervention with the patient. I reviewed the risks of the procedure to include, but not limited to, bleeding, infection, pain, stiffness, damage to nerves or vessels, recurrence, blood clot. Despite these risks, the patient elected to proceed. Findings: A diagnostic arthroscopy was performed with the following findings: Suprapatellar Pouch: Mild inflammatory changes, No loose bodies Medial Compartment: Complex medial meniscal tear, Intact meniscal root, No significant chondromalacia or signs of arthritis, No loose bodies Notch: ACL and PCL were intact Lateral Compartment: No meniscal tear, Intact meniscal root, No significant chondromalacia or signs of arthritis, No loose bodies Patellofemoral Compartment: No significant chondromalacia, No apparent patellar maltracking Procedure Description: Shaina was greeted in the preoperative holding area where the correct side was identified and marked. The consent was reviewed with the patient and signed. The history and physical was updated. All questions were answered. She was taken back to the operating room. The patient was placed into the supine position on the operating room table. A nonsterile tourniquet was placed high onto the leg but not used. All bony prominences were well padded. Prophylactic antibiotics in the form of Cefazolin were administered. The left leg was then prepped with Chloraprep and draped in a standard fashion with stockinette and extremity drape. A timeout to confirm correct identity, side and site, procedure, allergies, anesthesia, and medical concerns was performed. The leg was placed into a pneumatic leg clay, SPIDER2. A standard lateral por vazquez was made at the lateral border of the patella tendon in line with the inferior pole of the patella, soft spot. The skin and deep tissue was incised sharply and the blunt trochar was inserted atraumatically. A diagnostic arthroscopy was performed and the findings are listed above. The suprapatellar pouch had mild inflammatory changes. The patellofemoral articulation showed minimal articlar damage as well as good tracking. The lateral gutter had no loose bodies and the medial gutter had no loose bodies. The knee was brought into some valgus stress in extension to open the medial compartment. A medial portal was made, localized by a spinal needle. The portal was created with an #11 blade through skin and capsule under direct visualization avoiding any meniscal injury. A probe was then inserted into the medial compartment. The medial compartment was fully inspected. The chondral surface of the tibia showed no significant chondromalacia and the surface of the femur showed no significant chondromalacia. The medial meniscus had a complex tear at the posterior horn and midbody. There also was a small flap tear at the root which did not destabilize the root. After evaluation, the meniscus was debrided down to a stable base using a series of biters and arthroscopic jono. It was probed afterwards to confirm that the tear had been removed and the meniscus was stable. The notch was then inspected which showed an intact ACL and an intact PCL. The leg was then brought into a figure of 4 position. The lateral compartment was fully inspected with the arthroscope and a probe. The chondral surface of the lateral femur showed no significant chondromalacia. The chondral surface of the lateral tibia showed no significant chondromalacia. The lateral meniscus had no meniscal tear. The arthroscope was brought back into the suprapatellar pouch and the leg was in full extension. The knee was thoroughly irrigated with the arthroscopic fluid on high flow and pressure. Inflow was stopped and excess fluid was removed. The wounds were closed with 4-0 Nylon. They were dressed with Xeroform, 4x4 gauze, ABD pad, Kerlix and an ABNER wrap. A cryo-cuff was applied. The patient tolerated the procedure well and was returned to the Same Day Surgery area in a stable condition suffering no known complication.
== END 2021-06-23 15:17 | disposition home or self-care (01) ==
PROVIDERS: PCP Nurse Practitioner Family; Visit Provider Student in an Organized Health Care Education/Training Program
PROC: (CPT 29870; principal; 2021-06-23 11:15)
DX: M23.232 Derangement of other medial meniscus due to old tear or injury, left knee (principal); M17.12 Unilateral primary osteoarthritis, left knee
CPT/HCPCS: 29881; J0690; J1100; J1885; J2405; J2704

== ENCOUNTER 2022-03-22 20:16 | Outpatient (REF) | payer BC, SELFPAY ==
[2022-03-22 17:51] LABS: ALT 32 U/L (14-59); AST 21 U/L (15-37); Albumin 3.8 g/dL (3.4-5.0); Alkaline Phosphatase 66 U/L (46-116); Anion Gap 9.7 mmol/L (3-11); BUN 20 mg/dL (7-18); Bilirubin, Total 0.4 mg/dL (0.2-1.0); CO2 28.3 mmol/L (21.0-32.0); CREATININE 0.8 mg/dL (0.55-1.02); Calcium 8.9 mg/dL (8.5-10.1); Calculated LDL 112 mg/dL (<100); Chloride 102 mmol/L (98-107); Cholesterol 232 mg/dL (<200); Glucose 97 mg/dL (74-106); HDL Cholesterol 104 mg/dL (40-60); Potassium 4.3 mmol/L (3.5-5.1); Sodium 140 mmol/L (136-145); Total Protein 7.7 g/dL (6.4-8.2); Triglyceride 83 mg/dL (<150)
== END 2022-03-22 20:17 | disposition home or self-care (01) ==
LOC: NCHCN 20:16
PROVIDERS: PCP Nurse Practitioner Family; Visit Provider Nurse Practitioner Family
DX: Z00.00 Encounter for general adult medical examination without abnormal findings (principal); E78.5 Hyperlipidemia, unspecified; K59.00 Constipation, unspecified; K30 Functional dyspepsia; F90.0 Attention-deficit hyperactivity disorder, predominantly inattentive type; E66.9 Obesity, unspecified
CPT/HCPCS: 80053; 80061

== ENCOUNTER → 2022-03-30 02:01 | Outpatient (CLI) | payer BC, SELFPAY ==
--- NOTE | 2022-03-30 17:00 | DI.MAMMO_ITS ---
Exam(s) MAMMO SCREENING EXAM: MAMMO SCREENING CLINICAL HISTORY: SCREENING, Z12.39, FAMILY HX BREAST CA, Z80.3. TECHNIQUE: Bilateral full field digital CC and MLO mammographic images were obtained with 3D tomosyn thesis and utilizing computer aided detection (CAD). COMPARISON: Prior mammograms were reviewed, the most recent being November 2020. . FINDINGS: There has been no significant change appearance and distribution of the fibroglandular tissue. Asymmetric tissue posteriorly in the right breast is unchanged from prior studies. Small benign-appe aring nodular density in left breast is unchanged prior studies. There are no new spiculated masses nor malignant appearing microcalcification groups. There is no significant architectural distortion nor skin thickening-retraction. IMPRESSION: Stable benign-appearing findings. No radiographic evidence of malignancy. BI-RADS Category 2 - Benign Findings Breast Density - Category B - Scattered areas of fibroglandular density Breast density Category C or D implies that the patient has dense breast tissue. Dense breast tissue can make it harder to find cancer on a mammogram. Dense breast tissue is also associated with an incr eased risk of breast cancer. This information about the result of the mammogram report was provided to the patient to raise their awareness. Use this report when you speak with the patient about their risks for breast cancer, which includes their family history. At that time, you may recommend additional screening tests (Ultrasoun d or MRI) as these tests may add significant information. A negative radiographic report should not delay biopsy if a dominant or clinically suspicious mass is present. Up to ten percent of cancers are not identified on mammography. A negative report may reinforce clinical impression. Adenosis and dense breasts may obscure an underlying neoplasm. False positive reports average 6 to 10%. Patient will receive a letter notifying them of these results.
== END ==
PROVIDERS: PCP Nurse Practitioner Family; Visit Provider Nurse Practitioner Family
DX: Z12.31 Encounter for screening mammogram for malignant neoplasm of breast (principal); N60.81 Other benign mammary dysplasias of right breast; N60.82 Other benign mammary dysplasias of left breast; Z80.3 Family history of malignant neoplasm of breast
CPT/HCPCS: 77063; 77067

== ENCOUNTER 2022-08-04 12:02 | Outpatient (REF) | payer BC, SELFPAY ==
[2022-08-04 14:31] LABS: Abs Immature Grans 0.02 10^3/uL (0.0-0.06); Absolute Basophil Count 0.01 10^3/uL (0.0-0.2); Absolute Eosinophil Count 0.16 10^3/uL (0.0-0.7); Absolute Lymphocyte Count 1.96 10^3/uL (1.2-3.4); Absolute Neutrophil Count 3.67 10^3/uL (1.2-6.7); Basophils % 0.2; Eosinophils % 2.5; HCT 41.8 % (36.0-46.0); HGB 14.1 g/dL (11.2-15.7); Immature Grans % 0.3; MCH 31.4 pg (27.0-33.0); MCHC 33.7 % (32.0-36.0); MCV 93 fL (80-95); MPV 10.7 fL (8.0-11.0); Monocytes % 7.9; Neutrophils % 58.1; Platelet Count 303 10^3/uL (130-400); RBC 4.49 10^6/uL (3.93-5.22); RDW 12.9 % (11.7-14.6); RDW-SD 44.3 fL; WBC 6.32 10^3/uL (4.4-10.8)
[2022-08-04 14:58] LABS: Iron 61 ug/dL (50-170); Total Iron Binding Capacity 313 ug/dL (250-450); Transferrin Sat 19 % (15-50)
[2022-08-04 15:20] LABS: Vitamin D 25 Total 46.4 ng/mL (30-100)
[2022-08-04 15:22] LABS: Ferritin 124 ng/mL (8-252); TSH (W/Ref FT4) 1.38 uIU/mL (0.36-3.74); Vitamin B12 546 pg/mL (193-986)
== END 2022-08-04 12:03 | disposition home or self-care (01) ==
LOC: NCHCN 12:02
PROVIDERS: PCP Nurse Practitioner Family; Visit Provider Nurse Practitioner Family
DX: E78.5 Hyperlipidemia, unspecified (principal); E66.9 Obesity, unspecified; R53.83 Other fatigue; K59.00 Constipation, unspecified; F41.8 Other specified anxiety disorders; R06.83 Snoring
CPT/HCPCS: 82306; 82607; 82728; 83540; 83550; 84443; 85025

== ENCOUNTER 2022-10-27 18:54 | Outpatient (REF) | payer BC, SELFPAY ==
[2022-10-29 02:18] LABS: COVID-19 RT-PCR UVMMC Result Negative (Negative)
== END 2022-10-27 18:55 | disposition home or self-care (01) ==
LOC: LBN 18:54
PROVIDERS: PCP Nurse Practitioner Family; Visit Provider Physician Assistant Medical
DX: J34.89 Other specified disorders of nose and nasal sinuses (principal); Z20.822 Contact with and (suspected) exposure to COVID-19
CPT/HCPCS: U0003

== ENCOUNTER 2022-11-21 09:57 | Day surgery (SDC) | payer BC, SELFPAY ==
--- NOTE | 2022-11-21 06:39 | ANES.PREOP_ITS ---
General Info Height: 5 ft 4 in Surgical Procedure: Operation Date: 11/21/22 11:20 Proposed Procedure Side Surgeon p Colonoscopy Nilesh Cerna MD Meds Allergies and Home Medications Allergies Allergy/AdvReac Type Severity Reaction Status Date / Time penicillin G Allergy Severe unknown Verified 11/10/22 15:58 was hospitalized-age 4 seasonal Allergy Uncoded 11/10/22 15:58 Home Medication Medication Instructions Recorded sertraline 100 mg tablet 100 mg PO HS 11/09/12 cholecalciferol (vitamin D3) 50 2,000 unit PO DAILY 09/07/18 mcg (2,000 unit) capsule simvastatin 10 mg tablet 20 mg PO QHS 09/07/18 vitamin B complex 1 cap PO DAILY 09/07/18 acetaminophen 500 mg tablet 500 mg PO Q6H PRN pain #60 tabs 06/23/21 ibuprofen 600 mg tablet 600 mg PO TID PRN pain #60 tabs 06/23/21 omega 7-wdz-zgu-fish oil 60 mg-90 1 cap PO DAILY 07/28/22 mg-500 mg capsule (Fish Oil) metformin 500 mg tablet 500 mg PO DAILY 08/15/22 bisacodyl 5 mg tablet,delayed 5 mg PO ONCE colonscopy bowel prep 11/10/22 release (Dulcolax (bisacodyl)) #4 tabs famotidine 20 mg tablet (Pepcid) 20 mg PO DAILY PRN 11/10/22 fluticasone propionate 50 1 spray intranasal DAILY 11/10/22 mcg/actuation nasal spray,suspension (Flonase Allergy Relief) methylphenidate HCl 5 mg tablet 5 mg PO BID PRN 11/10/22 (Ritalin) polyethylene glycol 3350 17 238 g PO ONCE colonoscopy prep 11/10/22 gram/dose oral powder #238 grams Current Visit Medications: Current Medications Generic Name Dose Route Start Last Admin Trade Name Freq PRN Reason Stop Dose Admin Ringer's Solution 1,000 mls @ 80 mls/hr 11/21/22 06:00 IV 12/18/22 23:59 INFUSION [facility] IV Miscellaneous Supplies 1 each 11/21/22 06:00 Iv Access IV 12/18/22 23:59 DIRECTED [facility] Sodium Chloride 0 ml 11/21/22 06:00 Normal Saline Flush 10 Ml Syr IV 12/18/22 23:59 PRN PRN Sodium Chloride 0 ml 11/21/22 06:00 Normal Saline 10 Ml Vial IJ 12/18/22 23:59 DIRECTED PRN Sterile Water 0 ml 11/21/22 06:00 Water,Injection,Sterile 10 Ml Vial IJ 12/18/22 23:59 DIRECTED PRN PFSH Active Problems Active Problems: Problem Status Onset Code Depression Elevated lipids Family history of breast cancer Z80.3 Family history of ovarian cancer Z80.41 Vaginal atrophy N95.2 Tear of medial meniscus of right knee S83.241A Degenerative joint disease of right knee M17.11 Vaginal pruritus N89.8 Closed fracture of talus of right foot 01/29/21 S92.101A Stress incontinence N39.3 Screening for colon cancer Z12.11 Sarcoidosis D86.9 Anxiety F41.9 Overweight E66.3 Dyspepsia R10.13 Decreased hearing of both ears H91.93 Constipation K59.00 Snoring R06.83 Incontinence R32 Medical History Medical History (Updated 11/18/22 @ 15:14 by Mariana Romero RN) 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 Atypical metaplastic cells on biopsy suggestive of inflammatory process. Plan to treat with vaginal estradiol for 6 months and then re- colpo. Cervical high risk human papillomavirus (HPV) DNA test positive Derangement of left knee Hyperlipidemia Surgical History Surgical History H/O bilateral salpingo-oophorectomy H/O cone biopsy of cervix 06/17/20 cold knife cone. History of breast biopsy (05/29/14) History of colposcopy History of vaginal hysterectomy Hx of colposcopy with cervical biopsy 2016. Nl 2019. Status post arthroscopy of left knee (06/23/21) Partial medial menisectomy Status post arthroscopy of right knee (04/14/20) Status post breast reduction (05/29/14) Tobacco Smoking/Tobacco Use Status: Former Tobacco Use Alcohol Alcohol Intake: current Alcohol intake frequency: 0-2 drinks per day Alcohol type: wine Details: Does not feel that she has a problem with alcohol Substance Use Substance use: Rarely Substance use type: marijuana Prental History History 2 Para Hx # Term Pregnancies 2 Multiple births Hx # Pregnancies Ectopic pregnancies AB induced Hx Number of Living Children AB spontaneous Vital Signs and Lab Results Lab Results Blood Type / Crossmatch: No Data to Display Complete Blood Count: No Data to Display Complete Metabolic Panel: No Data to Display Liver Function Panel: No Data to Display Coagulation Panel: No Data to Display Cardiac Panel: No Data to Display Arterial Blood Gas: No Data to Display Venous Blood Gas: No Data to Display Pancreas Panel: No Data to Display Thyroid Panel: No Data to Display Infectious Disease: Coronavirus (COVID-19)(PCR) Negative (Negative) 10/27/22 18:50 Blood Cultures: No Data to Display Toxicology Panel: No Data to Display Anesthesia Assessment and Plan Anesthesia History Personal History: No History of Anesthesia Complications Family History: No Family History of Anesthesia Complications Exercise Tolerance Exercise Tolerance: Metabolic Equivalents>4 Implantable Cardiac Device Does patient have a Pacemaker or an ICD?: No Airway Exam Known Difficult Airway: No Mallampati Class: 2 Mouth Opening: Normal (> 3cm) Thyromental Distance: Greater than 3 cm Neck Range of Motion: Full ROM Neck Circumference: Normal Teeth Condition: Normal Dentition Anesthesia Plan Resuscitation Status: Full Code Anesthesia Technique: MAC Anesthesia Airway Planned: Natural Airway Monitors Used: Standard Monitors Preoperative Comments:: 62 yo female for cataract removal. Sig PMHx: sarcoidosis, anxiety, LES, former smoker, occ EtOH/cannabis. Previous Anes: - knee scope, LMA 4. - cervical biopsy, prop, natural airway, no issues. - hysterectomy, glide 3, easy mask. - knee scope, chloro spinal.
[2022-11-21 10:30] VITALS: BP 128/65; PULSE 78; RESP 16; TEMP 36.6; O2SAT 98
--- NOTE | 2022-11-21 10:52 | ANES.PREOP_ITS ---
General Info Date of Service Date Performed: 11/21/22 Height: 5 ft 4 in Weight: 68.5 kg Body Mass Index (BMI): 25.9 Surgical Procedure: Operation Date: 11/21/22 11:20 Proposed Procedure Side Surgeon p Jean Cerna MD Meds Allergies and Home Medications Allergies Allergy/AdvReac Type Severity Reaction Status Date / Time penicillin G Allergy Severe unknown Verified 11/21/22 10:43 was hospitalized-age 4 seasonal Allergy Uncoded 11/21/22 10:43 Home Medication Medication Instructions Recorded sertraline 100 mg tablet 100 mg PO HS 11/09/12 cholecalciferol (vitamin D3) 50 2,000 unit PO DAILY 09/07/18 mcg (2,000 unit) capsule simvastatin 10 mg tablet 20 mg PO QHS 09/07/18 vitamin B complex 1 cap PO DAILY 09/07/18 acetaminophen 500 mg tablet 500 mg PO Q6H PRN pain #60 tabs 06/23/21 ibuprofen 600 mg tablet 600 mg PO TID PRN pain #60 tabs 06/23/21 omega 7-okw-fqy-fish oil 60 mg-90 1 cap PO DAILY 07/28/22 mg-500 mg capsule (Fish Oil) metformin 500 mg tablet 500 mg PO DAILY 08/15/22 bisacodyl 5 mg tablet,delayed 5 mg PO ONCE colonscopy bowel prep 11/10/22 release (Dulcolax (bisacodyl)) #4 tabs famotidine 20 mg tablet (Pepcid) 20 mg PO DAILY PRN 11/10/22 fluticasone propionate 50 1 spray intranasal DAILY 11/10/22 mcg/actuation nasal spray,suspension (Flonase Allergy Relief) methylphenidate HCl 5 mg tablet 5 mg PO BID PRN 11/10/22 (Ritalin) polyethylene glycol 3350 17 238 g PO ONCE colonoscopy prep 11/10/22 gram/dose oral powder #238 grams Current Visit Medications: Current Medications Generic Name Dose Route Start Last Admin Trade Name Freq PRN Reason Stop Dose Admin Ringer's Solution 1,000 mls @ 80 mls/hr 11/21/22 06:00 IV 12/18/22 23:59 INFUSION [facility] IV Miscellaneous Supplies 1 each 11/21/22 06:00 Iv Access IV 12/18/22 23:59 DIRECTED [facility] Sodium Chloride 0 ml 11/21/22 06:00 Normal Saline Flush 10 Ml Syr IV 12/18/22 23:59 PRN PRN Sodium Chloride 0 ml 11/21/22 06:00 Normal Saline 10 Ml Vial IJ 12/18/22 23:59 DIRECTED PRN Sterile Water 0 ml 11/21/22 06:00 Water,Injection,Sterile 10 Ml Vial IJ 12/18/22 23:59 DIRECTED PRN PFSH Active Problems Active Problems: Problem Status Onset Code Depression Elevated lipids Family history of breast cancer Z80.3 Family history of ovarian cancer Z80.41 Vaginal atrophy N95.2 Tear of medial meniscus of right knee S83.241A Degenerative joint disease of right knee M17.11 Vaginal pruritus N89.8 Closed fracture of talus of right foot 01/29/21 S92.101A Stress incontinence N39.3 Screening for colon cancer Z12.11 Sarcoidosis D86.9 Anxiety F41.9 Overweight E66.3 Dyspepsia R10.13 Decreased hearing of both ears H91.93 Constipation K59.00 Snoring R06.83 Incontinence R32 Medical History Medical History 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 Atypical metaplastic cells on biopsy suggestive of inflammatory process. Plan to treat with vaginal estradiol for 6 months and then re- colpo. Cervical high risk human papillomavirus (HPV) DNA test positive Derangement of left knee Hyperlipidemia Surgical History Surgical History H/O bilateral salpingo-oophorectomy H/O cone biopsy of cervix 06/17/20 cold knife cone. History of breast biopsy (05/29/14) History of colposcopy History of vaginal hysterectomy Hx of colposcopy with cervical biopsy 2016. Nl 2019. Status post arthroscopy of left knee (06/23/21) Partial medial menisectomy Status post arthroscopy of right knee (04/14/20) Status post breast reduction (05/29/14) Tobacco Smoking/Tobacco Use Status: Former Tobacco Use Alcohol Alcohol Intake: current Alcohol intake frequency: 0-2 drinks per day Alcohol type: wine Details: Does not feel that she has a problem with alcohol Substance Use Substance use: Rarely Substance use type: marijuana Prental History History 2 Para Hx # Term Pregnancies 2 Multiple births Hx # Pregnancies Ectopic pregnancies AB induced Hx Number of Living Children AB spontaneous Vital Signs and Lab Results Vital Signs Most Recent Vital Signs in EMR: Most Recent Vital Signs Temp Pulse Resp BP Pulse Ox 36.6 C 78 16 128/65 98 11/21/22 10:30 11/21/22 10:30 11/21/22 10:30 11/21/22 10:30 11/21/22 10:30 Lab Results Blood Type / Crossmatch: No Data to Display Complete Blood Count: No Data to Display Complete Metabolic Panel: No Data to Display Liver Function Panel: No Data to Display Coagulation Panel: No Data to Display Cardiac Panel: No Data to Display Arterial Blood Gas: No Data to Display Venous Blood Gas: No Data to Display Pancreas Panel: No Data to Display Thyroid Panel: No Data to Display Infectious Disease: Coronavirus (COVID-19)(PCR) Negative (Negative) 10/27/22 18:50 Blood Cultures: No Data to Display Toxicology Panel: No Data to Display Anesthesia Assessment and Plan Anesthesia History Personal History: No History of Anesthesia Complications Family History: No Family History of Anesthesia Complications Exercise Tolerance Exercise Tolerance: Metabolic Equivalents>4 Pertinent Negatives Pertinent Negatives: No Symptoms of GERD Cardiac & Pulmonary Exam Cardiac Exam: Normal S1/S2 Heart Sounds Pulmonary Exam: Clear Bilateral Breath Sounds Implantable Cardiac Device Does patient have a Pacemaker or an ICD?: No Airway Exam Known Difficult Airway: No Mallampati Class: 2 Mouth Opening: Normal (> 3cm) Thyromental Distance: Greater than 3 cm Neck Range of Motion: Full ROM Neck Circumference: Normal Teeth Condition: Normal Dentition ASA Classification ASA Score: ASA 2 Emergency Case?: No NPO Status NPO Status: NPO Clears >2 hours, Solids >8 hours Anesthesia Plan Resuscitation Status: Full Code Anesthesia Technique: General Anesthesia Airway Planned: Natural Airway Monitors Used: Standard Monitors
[2022-11-21] MEDS: Lactated Ringers 1,000 ML 80 ML IV (11:00)
--- NOTE | 2022-11-21 11:11 | W.COLOREPORT ---
Date of service: 11/21/22 Time of Service: 11:30 Colonoscopy Report Procedure Description: Procedures performed: 1. Colonoscopy Preoperative diagnosis: Surveillance colonoscopy Postoperative diagnosis: Normal colon Surgeon: Sid Cerna Anesthesia: Abraham Indication for procedure: The patient is a 62-year-old woman who had a normal colonoscopy 10 years ago. She is due for surveillance. She has no symptoms and no family history. Her only surgical history is that of a total hysterectomy. Findings: Tortuous colon but no inflammation, polyps or disease. Normal terminal ileum. Surveillance/follow-up recommendations: 10 years Complications: None Blood loss: Minimal Specimens:?? YES Quality of Prep:?? Good Procedure in detail: Written consent was obtained from the patient who was in agreement with the risks, benefits and indications of the procedure.? We went to the endoscopy suite and laid the patient in left lateral decubitus position.? Anesthesia was administered which was tolerated well.? A timeout was performed and when we are all in agreement we began the procedure. Digital rectal exam and visual examination was performed and within normal limits.? A well?lubricated colonoscope was advanced without difficulty all the way to the cecum identified by the ileocecal valve, and triangular folds and appendiceal orifice.? The terminal ileum was briefly intubated and look normal. The scope was then slowly withdrawn.?? Retroflexion was performed in the rectum.? The findings/interventions are noted above. The scope was then removed and the patient tolerated the procedure well and was then taken back to the PACU in hemodynamically stable condition.
[2022-11-21 11:19] VITALS: BMI 25.9
[2022-11-21 12:00] VITALS: BP 96/55; PULSE 57; RESP 16; TEMP 36.2; O2SAT 97
--- NOTE | 2022-11-21 12:32 | W.ANESPOSTOP ---
Postoperative Evaluation Date, Time and Location Date Performed: 11/21/22 Time Performed: 11:55 Patient Location: Day Surgery Unit Vital Signs Most Recent Imported Vital Signs: Most Recent Vital Signs Temp Pulse Resp BP Pulse Ox 36.2 C L 57 L 16 96/55 L 97 11/21/22 12:00 11/21/22 12:00 11/21/22 12:00 11/21/22 12:00 11/21/22 12:00 Pain Score Most Recent Pain Score: Most Recent Pain Score Pain Level 0 11/21/22 12:00 Assessment Mental Status: Awake (Alert & Oriented to Patient Baseline) Airway and Respiratory Function: Patent airway with normal (patient baseline) respiratory exam Cardiovascular Function: Hemodynamically Stable Hydration Status: Adequately Hydrated Nausea & Vomiting: No Nausea or Vomiting Pain: Pt. Denies Any Pain Peripheral Nerve Block: Patient did not receive a nerve block
[2022-11-21 12:33] VITALS: BP 84/54; PULSE 60; RESP 16; TEMP 36.2; O2SAT 97
[2022-11-21 12:49] VITALS: BP 97/51; PULSE 63; RESP 16; TEMP 36.2; O2SAT 97
== END 2022-11-21 13:10 | disposition home or self-care (01) ==
PROVIDERS: PCP Nurse Practitioner Family; Visit Provider Student in an Organized Health Care Education/Training Program
PROC: 0DJD8ZZ Inspection of Lower Intestinal Tract, Via Natural or Artificial Opening Endoscopic (ICD-10-PCS; CPT 45378; principal; 2022-11-21 11:15)
DX: Z12.11 Encounter for screening for malignant neoplasm of colon (principal); E78.5 Hyperlipidemia, unspecified
CPT/HCPCS: 45378

== ENCOUNTER 2023-04-04 20:21 | Outpatient (REF) | payer BC, SELFPAY ==
[2023-04-04 17:20] LABS: ALT 34 U/L (14-59); AST 20 U/L (15-37); Alkaline Phosphatase 75 U/L (46-116); Anion Gap 7.9 mmol/L (3-11); BUN 18 mg/dL (7-18); Bilirubin, Total 0.5 mg/dL (0.2-1.0); CO2 29.1 mmol/L (21.0-32.0); CREATININE 0.9 mg/dL (0.55-1.02); Calcium 9.4 mg/dL (8.5-10.1); Calculated LDL 95 mg/dL (<100); Chloride 101 mmol/L (98-107); Cholesterol 224 mg/dL (<200); Estimated GFR 72.28 (mL/min/1.73m2); Glucose 84 mg/dL (74-106); HDL Cholesterol 118 mg/dL (40-60); Potassium 4.5 mmol/L (3.5-5.1); Sodium 138 mmol/L (136-145); Total Protein 7.4 g/dL (6.4-8.2); Triglyceride 56 mg/dL (<150)
== END 2023-04-04 20:22 | disposition home or self-care (01) ==
LOC: NCHCN 20:21
PROVIDERS: PCP Nurse Practitioner Family; Visit Provider Nurse Practitioner Family
DX: E78.5 Hyperlipidemia, unspecified (principal); F41.8 Other specified anxiety disorders; E66.3 Overweight; F90.0 Attention-deficit hyperactivity disorder, predominantly inattentive type; K59.00 Constipation, unspecified
CPT/HCPCS: 80053; 80061

== ENCOUNTER → 2023-04-17 02:40 | Outpatient (CLI) | payer BC, SELFPAY ==
--- NOTE | 2023-04-17 | DI.MAMMO_ITS ---
Exam(s) MAMMO SCREENING EXAM: MAMMO SCREENING CLINICAL HISTORY: SCREENING FOR BREAST CANCER Z12.39 FAM HX BREAST CANCER Z80.3 TECHNIQUE: Mammograms were interpreted according to the usual protocol including computer analysis w [employer] CAD system, tomosynthesis and C-view imaging. COMPARISON: 2013 through 2021 FINDINGS: The breasts are composed of scattered fibroglandular densities, Breast Density category B. No suspicious masses or suspicious microcalcifications are seen. Previously noted bilateral areas of nodularity are stable. No skin thickening or abnormal axillary lymph nodes are seen. There has been no significant change from prior exams. IMPRESSION: BI-RADS Category 2 - Benign Findings Yearly screening mammography is recommended. Breast Density - Category B, scattered fibroglandular densities. A negative radiographic report should not delay biopsy if a dominant or clinically suspicious mass is present. Up to ten percent of cancers are not identified on mammography. A negative report may reinforce clinical impression. Adenosis and dense breasts may obscure an underlying neoplasm. False positive reports average 6 to 10%. Patient will receive a letter notifying them of these results.
== END ==
PROVIDERS: PCP Nurse Practitioner Family; Visit Provider Nurse Practitioner Family
DX: Z12.31 Encounter for screening mammogram for malignant neoplasm of breast (principal)
CPT/HCPCS: 77063; 77067

== ENCOUNTER 2024-04-04 13:35 | Outpatient (REF) | payer BC, SELFPAY | END 2024-04-04 13:36 | disposition home or self-care (01) | LOC: NCHCN 13:35 | PROVIDERS: PCP Nurse Practitioner Family; Visit Provider Nurse Practitioner Family | DX: R30.0 Dysuria (principal) | CPT/HCPCS: 87086 ==

== ENCOUNTER 2024-04-18 01:32 | Outpatient (CLI) | payer BC, SELFPAY ==
--- NOTE | 2024-04-18 | DI.MAMMO_ITS ---
Exam(s) MAMMO SCREENING EXAM: MAMMO SCREENING CLINICAL HISTORY: SCREENING MAMMO Z80.3 FAM HX BREAST CANCER. TECHNIQUE: Bilateral full field digital CC and MLO mammographic images were obtained with 3D tomosyn thesis and utilizing computer aided detection (CAD). COMPARISON: Prior mammograms were reviewed. FINDINGS: There has been no significant change in the appearance and distribution of the fibroglandular tissue. Appearance of the breast tissue pattern most probably reflects prior bilateral reduction surgery Asymmetric densities seen bilaterally are unchanged from prior mammograms. There are no new spiculated masses nor malignant appearing microcalcification groups. There is no significant new architectural distortion nor skin thickening-retraction. IMPRESSION: No radiographic evidence of malignancy. Stable benign findings. BI-RADS Category 2 - Benign Findings Breast Density - Category B - Scattered areas of fibroglandular density Breast density Category C or D implies that the patient has dense breast tissue. Dense breast tissue can make it harder to find cancer on a mammogram. Dense breast tissue is also associated with an incr eased risk of breast cancer. This information about the result of the mammogram report was provided to the patient to raise their awareness. Use this report when you speak with the patient about their risks for breast cancer, which includes their family history. At that time, you may recommend additional screening tests (Ultrasoun d or MRI) as these tests may add significant information. A negative radiographic report should not delay biopsy if a dominant or clinically suspicious mass is present. Up to ten percent of cancers are not identified on mammography. A negative report may reinforce clinical impression. Adenosis and dense breasts may obscure an underlying neoplasm. False positive reports average 6 to 10%. Patient will receive a letter notifying them of these results.
== END 2024-04-18 01:52 ==
LOC: DI 01:32
PROVIDERS: PCP Nurse Practitioner Family; Visit Provider Nurse Practitioner Family
DX: Z80.3 Family history of malignant neoplasm of breast (principal)
CPT/HCPCS: 77063; 77067

== ENCOUNTER 2025-03-14 16:49 | Outpatient (REF) | payer BC, SELFPAY ==
[2025-03-14 15:37] LABS: ALT 32 U/L (14-59); AST 22 U/L (15-37); Albumin 4.0 g/dL (3.4-5.0); Alkaline Phosphatase 72 U/L (46-116); Anion Gap 10.1 mmol/L (3-11); BUN 23 mg/dL (7-18); Bilirubin, Total 0.4 mg/dL (0.2-1.0); CO2 25.9 mmol/L (21.0-32.0); Calcium 9.0 mg/dL (8.5-10.1); Calculated LDL 116 mg/dL (<100); Chloride 104 mmol/L (98-107); Cholesterol 223 mg/dL (<200); Estimated GFR 82.23 (mL/min/1.73m2); Glucose 86 mg/dL (74-106); HDL Cholesterol 96 mg/dL (>or=50); Potassium 4.7 mmol/L (3.5-5.1); Sodium 140 mmol/L (136-145); Total Protein 7.3 g/dL (6.4-8.2); Triglyceride 58 mg/dL (<150)
== END 2025-03-14 16:50 | disposition home or self-care (01) ==
LOC: NCHCN 16:49
PROVIDERS: PCP Nurse Practitioner Family; Visit Provider Nurse Practitioner Family
DX: E78.5 Hyperlipidemia, unspecified (principal)
CPT/HCPCS: 80053; 80061

== ENCOUNTER 2025-04-22 01:00 | Outpatient (CLI) | payer BC, SELFPAY ==
--- NOTE | 2025-04-22 | DI.MAMMO_ITS ---
Exam(s) MAMMO SCREENING EXAM: MAMMO SCREENING CLINICAL HISTORY: SCREENING MAMMO Z80.3 FAM HX BREAST CANCER TECHNIQUE: Bilateral full field digital CC and MLO mammographic images were obtained with 3D tomosynthesis and utilizing computer aided detection (CAD). COMPARISON: Comparison is made with prior examinations. FINDINGS: Masses/Architectural Distortion: No suspicious masses or areas of architectural distortion are present. There are stable asymmetric densities in the breasts bilaterally. Microcalcifications: No suspicious pleomorphic-type are seen. Skin Thickening/Nipple Retraction: None. IMPRESSION: 1. No significant interval change with no specific features of malignancy noted. 2. Unless there is more urgent need, screening mammography is recommended, as per [employer] guidelines. BI-RADS Category 2 - Benign Findings Breast Density - Category B - There are scattered areas of fibroglandular density. Breast density Category C or D implies that the patient has dense breast tissue. Dense breast tissue can make it harder to find cancer on a mammogram. Dense breast tissue is also associated with an increased risk of breast cancer. This information about the result of the mammogram report was provided to the patient to raise their awareness. Use this report when you speak with the patient about their risks for breast cancer, which includes their family history. At that time, you may recommend additional screening tests (Ultrasound or MRI) as these tests may add significant information. A negative radiographic report should not delay biopsy if a dominant or clinically suspicious mass is present. Up to ten percent of cancers are not identified on mammography. A negative report may reinforce clinical impression. Adenosis and dense breasts may obscure an underlying neoplasm. False positive reports average 6 to 10%. Patient will receive a letter notifying them of these results.
== END 2025-04-22 01:20 ==
LOC: DI 01:00
PROVIDERS: PCP Nurse Practitioner Family; Visit Provider Nurse Practitioner Family
DX: Z80.3 Family history of malignant neoplasm of breast (principal)
CPT/HCPCS: 77063; 77067

== ENCOUNTER 2025-04-26 12:49 | Outpatient (REF) | payer BC, SELFPAY ==
[2025-04-26 16:45] LABS: Anion Gap 10.3 mmol/L (3-11); BUN 13 mg/dL (7-18); CO2 27.7 mmol/L (21.0-32.0); Calcium 9.2 mg/dL (8.5-10.1); Chloride 101 mmol/L (98-107); Estimated GFR 82.23 (mL/min/1.73m2); Glucose 111 mg/dL (74-106); Potassium 3.8 mmol/L (3.5-5.1); Sodium 139 mmol/L (136-145)
[2025-04-26 16:47] LABS: Abs Immature Grans 0.01 10^3/uL (0.0-0.06); HCT 39.1 % (36.0-46.0); HGB 12.8 g/dL (11.2-15.7); Immature Grans % 0.1 %; MCH 30.0 pg (27.0-33.0); MCHC 32.7 % (32.0-36.0); MCV 92 fL (80-95); MPV 10.6 fL (8.0-11.0); Platelet Count 273 10^3/uL (130-400); RBC 4.26 10^6/uL (3.93-5.22); RDW 12.8 % (11.7-14.6); RDW-SD 42.5 fL; WBC 8.22 10^3/uL (4.4-10.8)
== END 2025-04-26 12:50 | disposition home or self-care (01) ==
LOC: LBN 12:49
PROVIDERS: PCP Nurse Practitioner Family; Visit Provider Physician Assistant Medical
DX: R19.7 Diarrhea, unspecified (principal)
CPT/HCPCS: 80048; 85025